=== PATIENT | female | born 1955 | race Caucasian/White ===

== ENCOUNTER → 2023-06-12 03:09 | Outpatient (CLI) | payer SELFPAY ==
--- NOTE | 2023-06-12 10:15 | DI.RAD_ITS ---
Exam(s) XR LUMBAR SPINE COMPLETE EXAM: XR LUMBAR SPINE COMPLETE - 5 VIEWS CLINICAL HISTORY: HIP PAIN, LOW BACK PAIN, M25.559, M54.50. TECHNIQUE: 2D digital imaging was performed. COMPARISON: No exams were available for comparison FINDINGS: Five views. There is no evidence of fracture, listhesis, nor pars defects. There is advanced disc space narrowin g at L2-3 level. Also at L5-S1 level. Moderate narrowing evident at the levels. Relative preservat ion of disc height noted at L3-4 level. No significant osseous lesions. No scoliosis evident. Some degenerative change noted in the facet joints at L4-5 level. Sacroiliac joints appear unremarkable IMPRESSION: Multilevel degenerative disc disease as described above. No fractures. No scoliosis. No listhesis. DATA REPOSITORY: RADIATION DOSE DELIVERED:
--- NOTE | 2023-06-12 10:15 | DI.RAD_ITS ---
Exam(s) XR HIP PELVIS ADULT BL EXAM: XR HIP PELVIS ADULT BL CLINICAL HISTORY: HIP PAIN, LOW BACK PAIN, M25.559, M54.50. TECHNIQUE: 2D digital imaging was performed. COMPARISON: No exams were available for comparison FINDINGS: 3 views There is no evidence of pelvic nor hip fracture. There are mild degenerative changes in the hips. T here is no significant hip joint space narrowing. Tiny marginal osteophyte is noted on the medial as pect of the right femoral head. None on the left side. No significant osseous lesions. Sacroiliac joints appear unremarkable. IMPRESSION: Mild degenerative changes in the hips. DATA REPOSITORY: RADIATION DOSE DELIVERED:
== END ==
PROVIDERS: PCP Nurse Practitioner Family; Visit Provider Physician Assistant Medical
DX: M51.27 Other intervertebral disc displacement, lumbosacral region (principal)
CPT/HCPCS: 73521; 72110

== ENCOUNTER 2024-02-19 09:47 | Outpatient (REF) | payer SELFPAY ==
[2024-02-19 16:22] LABS: Ferritin 101 ng/mL (8-252); Magnesium 1.8 mg/dL (1.8-2.4); Vitamin D 25 Total 16.6 ng/mL (30-100)
[2024-02-19 16:39] LABS: Hemoglobin A1C 5.6 % (<5.7)
== END 2024-02-19 09:48 | disposition home or self-care (01) ==
LOC: NCHCN 09:47
PROVIDERS: PCP Physician Assistant Medical; Visit Provider Physician Assistant Medical
DX: F41.9 Anxiety disorder, unspecified (principal); R73.03 Prediabetes
CPT/HCPCS: 82306; 82728; 83036; 83735

== ENCOUNTER 2024-05-20 11:19 | Emergency (ER) | payer SELFPAY ==
[2024-05-20] VITALS (28 sets, daily range): BP systolic 138–225; BP diastolic 74–148; PULSE 85–160; RESP 10–32; TEMP 36.5–36.6; O2SAT 92–99
--- NOTE | 2024-05-20 11:30 | DI.CT_ITS ---
Exam(s) CT ABDOMEN PELVIS W EXAM: CT ABDOMEN PELVIS W CLINICAL HISTORY: LLQ ABD pain. TECHNIQUE: Imaging Protocol: Axial computed tomography images with coronal and sagittal reformatted images were created and reviewed CONTRAST MATERIAL: Intravenous: Omnipaque 350 Contrast volume:75 ml Oral: no COMPARISON: No exams were available for comparison FINDINGS: ABDOMEN and PELVIS: Lung Bases: No acute findings. Liver: Normal density. No suspicious mass. Gallbladder and biliary tract: No radiodense calculus. No biliary dilation. Pancreas: Normal density. No abnormal calcifications or inflammatory process. No evidence of mass. Spleen: Normal. Kidneys: Normal size, contour and axis. No radiodense stones. No obstructive uropathy. No suspicious masses seen. Adrenal glands: No masses seen. Vasculature: Abdominal aorta non-dilated. Moderate atherosclerotic changes. Soft tissues: Unremarkable. Bladder: No gross wall thickening. No calculi.No focal mass. Bowel: No obstruction. No bowel wall thickening. No evidence of appendicitis. Normal quantity of s tool. Mild diverticulosis of the sigmoid. No evidence of diverticulitis. Peritoneal cavity: No ascites. No focal collection. No mesenteric inflammatory response. No free air . Bones: Unremarkable for age. Reproductive organs: Unremarkable hysterectomy. Lymph nodes: No pathologically enlarged lymph nodes. IMPRESSION:: No acute abnormality in the abdomen or pelvis. RADIATION DOSE DELIVERED: 250.54mGy.cm Total DLP DATA REPOSITORY: All CT scans at this facility are submitted to the National Radiology Data Registry (NRDR) Dose Index Registry (DIR) with the [employer] (ACR). RADIATION OPTIMIZATION: All CT scans at this facility use at least one of these dose optimization te chniques: automated exposure control; mA and/or kV adjustment per patient size (includes targeted exa ms where dose is matched to clinical indication); or iterative reconstruction.
[2024-05-20 12:01] LABS: Abs Immature Grans 0.03 10^3/uL (0.0-0.06); Absolute Basophil Count 0.08 10^3/uL (0.0-0.2); Absolute Eosinophil Count 0.11 10^3/uL (0.0-0.7); Absolute Lymphocyte Count 2.19 10^3/uL (1.2-3.4); Absolute Monocyte Count 0.65 10^3/uL (0.1-0.8); Basophils % 0.7 %; HCT 42.8 % (36.0-46.0); HGB 14.4 g/dL (11.2-15.7); Immature Grans % 0.3 %; Lymphocytes % 19.1 %; MCH 31.4 pg (27.0-33.0); MCHC 33.6 % (32.0-36.0); MCV 93 fL (80-95); MPV 9.9 fL (8.0-11.0); Monocytes % 5.7 %; Neutrophils % 73.2 %; Platelet Count 303 10^3/uL (130-400); RBC 4.58 10^6/uL (3.93-5.22); RDW 12.6 % (11.7-14.6); RDW-SD 43.6 fL; WBC 11.48 10^3/uL (4.4-10.8)
[2024-05-20 12:02] LABS: ESR 20 mm/hr (0-30)
[2024-05-20 12:06] LABS: Bilirubin Negative (Negative); Blood Trace-intact (Negative); Clarity Clear (Clear); Glucose Negative (Negative); Ketones Negative (Negative); Leukocyte Esterase Negative (Negative); Nitrite Negative (Negative); Urobilinogen 0.2 mg/dL (Up to 0.2)
--- OUTSIDE RECORDS SUMMARY | 2024-05-20 12:13 | XMS_ITS | Encounter Summary ---
Author Organization [facility] Address [address] [place] [address] Care Team Providers Care Laundry Agent Name Role Phone Unavailable Primary Care Provider Unavailabl e Encounter Details Date Type Department Care Team (Latest Contact Info) Description 06/10/2007 11:32 EST - 06/10/2007 11:59 EST Hospital Encounter [facility] Perioperative Services- [address] [address] Edy Montgomery MD [address] [place] [address] DR MIRANDA [address] [place] [phone] Discharge Disposition: Home or Self Care Social History Tobacco Use Types Packs/Day Years Used Date Smoking Tobacco: Never Assessed Comments Unknown Sex and Gender Information Value Date Recorded Sex Assigned at Not on file Legal Sex Female 18:41 EST Gender Identity Not on file Sexual Orientation Not on file documented as of this encounter Discharge Disposition Disposition Code Departure Means Destination Home or Self Care documented in this encounter OR Notes * OR Surgeon - Edy Montgomery MD - 06/10/2007 0000 EST PROCEDURE REPORT PT TYPE: OPPROC SERVICE DATE: 06/10/2007 SURGEON: Melva De Leon MDEmmanuel Soultanakis, MD DOBIE WORKER: ?? PREOPERATIVE DIAGNOSIS Pelvic mass. POSTOPERATIVE DIAGNOSIS Pelvic mass with extensive adhesions. PROCEDURE Laparoscopic bilateral salpingo-oophorectomies, extensive lysis of adhesions. ANESTHESIA General endotracheal. INDICATIONS The patient is a 51woman who presented with abdominal distention and right-sided pelvic pain. On initial evaluation, she was found to have a small right-sided pelvic mass. Some of her symptoms resolved over some time, specifically her distention, but she persisted having right-sided pain, and the right-sided mass continued to persist on ultrasound. Decision was made to proceed with laparoscopic removal of the mass to an ovary and possible removal of the contralateral adnexa and staging if indicated. Patient signed a written consent after risks and benefits of procedure were reviewed. The patient had multiple laparotomies previously for bilateral ectopic pregnancies and a cystectomy in the past. FINDINGS Laparoscopy revealed extensive adhesion of the omentum to the anterior abdominal wall where her midline incision was previously. There were also some adhesions of the rectosigmoid to the left adnexa as well as in the pelvis. NARRATIVE The patient was taken to the operating room with an IV in place and general endotracheal anestheticwas administered. The patient was placed in the dorsal lithotomy position and was prepped and draped in the usual sterile fashion for a vaginal/abdominal procedure. A House catheter was placed in thebladder and a Hulka tenaculum was inserted into the uterus and attached to the anterior cervical lip. An infraumbilical vertical incision was then made with a 10 blade. This was carried down to the fascia using blunt dissection. The fascia was grasped with two Marcell clamps and incised. The peritoneal cavity was then entered sharply. Two 0 Vicryl stay sutures were placed through the fascia and the Quang cannula was inserted and attached to the two stay sutures. Initial inspection of the abdomen and pelvis revealed the above findings. There was a drape of omentum across the midportion of the abdomen where the midline incision was. Two lower trocars were placed in the lower abdomen, one in theright lower quadrant and one in the left lower quadrant. Visualization of the upper trocar with a 5-mm scope revealed that it was near the omental adhesions but was not interfering with any of the omentum, and the bowel was far away. The omentum was also adherent to the superior portion of the uterus, making visualization very difficult. Initially, we tried to restore some normal anatomy in order to be able to visualize the adnexa and allow for instruments from either side of the abdomen to be utilized. Using the LigaSure, the omentum attached to the uterus was cauterized and incised in order to mobilize that area. Once that was mobilized, we had some better visualization to attempt excision of the right-sided mass. The retroperitoneum was entered lateral to the IP using the monopolar cautery scissors. That area was dissected along the IP to skeletonize the IP. The ureter was ureter was identified, and the IP was then ca uterized multiple times with a LigaSure instruments and incised. The dissection was carried out towards the uteroovarian. Once at that area, we were able to cauterize the uteroovarian multiple times and incise and then separate the tube and ovary from the body. A 10-mm Endopouch was placed in the abdomen. The ovary was placed in the pouch and removed from the abdomen. It required decompression with removal of the cyst fluid prior to removal. The Quang cannula was then reinserted into the abdomen and the left tube and ovary were reinspected. The rectosigmoid was adherent over the left ovary and required mobilization using monopolar cautery scissors. Once the rectosigmoid was adequately mobilized in order to expose the IP, the retroperitoneum again was entered lateral to the IP and the IP was skeletonized. Because of the appearance of the left ovary with several excrescences, the decision was made to proceedwith a left salpingo- oophorectomy as well. The IP was then cauterized multiple times and incised and this dissection was carried out to the uteroovarian. The uteroovarian and remai annika fallopian tube were also cauterized and incised, and that specimen wasseparated, placed in a 10-mm Endopouch and removed from the abdomen. 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 The abdomen and pelvis were irrigated with a copious amount of normal saline, and all the pedicles were hemostatic. The area of dissection from the lysis of adhesions was also hemostatic. The lower trocars were removed and the Quang cannula was removed last after all the gas was allowed to escape. The fascia was closed with a 0 Vicryl suture in the infraumbilical incision, and all the incisions were repaired in a subcuticular fashion using 4-0 Monocryl. A sterile bandage was placed over the incision. The patient was taken out of dorsal lithotomy position after the Hulka tenaculum was removed, extubated successfully and taken to the recovery room in stable and awake condition. There were no complications to the procedure. The instrument, needle and lap counts were correct and I was present throughout the procedure. More than 50% of the case was restoring normal anatomy to proceed with the procedure. ESTIMATED BLOOD LOSS Minimal. IV FLUIDS Approximately 1700 mL crystalloid. SPECIMENS Bilateral tubes and ovaries and washings to pathology. 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 COMPLICATIONS None. Signed by Edy Montgomery MD 06/27/2007 14:50 Edy Montgomery MD Courier Delivery Driver, Division of DIRECTOR FIXED INCOME/Oncology - Edy Montgomery MD A - CHARTER BOAT CAPTAIN Job ID: [id number] Document ID: [id number] cc: BRIANA Méndez MD Edy Montgomery MD Courier Delivery Driver, Division of DIRECTOR FIXED INCOME/Oncology - Edy Montgomery MD A Neetu jimenez Job ID: [id number] Document ID: [id number] cc: BRIANA Méndez MD documented in this encounter Plan of Treatment Not on file documented as of this encounter Visit Diagnoses Not on filedocumented in this encounter
--- OUTSIDE RECORDS SUMMARY | 2024-05-20 12:13 | XMS_ITS | Encounter Summary ---
Author Organization [facility] Address [address] [place] [address] Care Team Providers Care Cow Buyer Name Role Phone Unavailable Primary Care Provider Unavailabl e Encounter Details Date Type Department Care Team (Late st Contact Info) Description 06/04/2007 Before PRISM Converted Visit (Maple) [facility] - Maple conversion [address] [place] [address] Edy Montgomery MD [address] [place] [address] DR MIRANDA [address] [place] [phone] Social History Tobacco Use Types Packs/Day Years Used Date Smoking Tobacco: Never Assessed Comments Unknown Sex and Gender Information Value Date Recorded Sex Assigned at Not on file Legal Sex Female 18:41 EST Gender Identity Not on file Sexual Orientation Not on file documented as of this encounter Progress Notes * Edy Montgomery MD - 04/06/20092035 EST [facility] Division of Gynecologic Oncology [facility], Level [address] [place] [address] June 04, 2007 Kath Gardner NP [facility] [address] [place] [address] Dear Ms. Gardner: I had the pleasure of seeing Erika Harkins back at the PROGRAM ARRANGER/Oncology office for a followup visit. I had seen her in April of 2007, because of increase bloating and abdominal pain. She had had an evaluation with a small pelvic mass, and we at that point elected to proceed with close followup. I asked her to have a GI evaluation to rule out any gastrointestinal etiology for her abdominal pain and bloating that may also contributeto a pelvic mass such as a metastatic colonic lesion. She has had that evaluation and her colonoscopy was entirely negative. She did have a repeat ultrasound today at our institution. The repeat ultrasound shows persistence of this mass. Again, there are nodular components and thick wall components in that area that increase our level of suspicion to this mass. In regards to her symptoms she has had some improvement of her abdominal bloating, but does continue tocomplain of right lower quadrant pain. I discussed with her and her the results of the ultrasound, and her ongoing symptoms. At this time, I have recommended that she has removal of that adnexal mass. We discussed the possible operative roots, including laparoscopic procedure, but also including laparotomy. She has had extensivesurgeries previously that may make laparoscopic approach technically very difficult. We also discussed intraoperative frozen section evaluation and surgical staging if this mass ends up being malignant. She understands that she will need an incision, removal of the uterus, cervix, tubes and ovaries, omentum, possible lymph node dissection and cytoreductive surgery if necessary. The risks and benefits of both procedures were discussed with her and a written consent was signed.We will obtain preoperative laboratory work-up and plan for surgery at our next available date. A physical examination was done today, which revealed clear lungs to auscultation. Heart rate was regular rate and rhythm. Her abdomen was soft with decreased distention and some right lower quadranttenderness. Extremities were nontender without edema. The pelvic exam was deferred today, since it was done on a previous examination. We will proceed with surgery, hopefully on June 10, 2007, and I will certainly keep you up-to-date with the findings of the surgery and any further recommendations. Thank you again for allowing me to contribute to Erika Harkins' care. If you have other questions regarding her care, please feel free to call or page me directly. It is my pleasure and privilege to take care of your patient. Sincerely, Signed by Edy Montgomery MD 06/06/2007 15:32 Edy Montgomery MD Boots And Shoes Supervisor, Division of PROGRAM ARRANGER/Oncology - Edy Montgomery MD - dis Job ID: [id number] Doc ID: [id number] cc: BRIANA Méndez MD Emmanuel Soultanakis, MD - dis Job ID: [id number] Doc ID: [id number] cc: BRIANA Méndez MD documented in this encounter Plan of Treatment Not on file documented as of this encounter Visit Diagnoses Not on filedocumented in this encounter
--- OUTSIDE RECORDS SUMMARY | 2024-05-20 12:13 | XMS_ITS | Encounter Summary ---
Author Organization [facility] Address [address] [place] [address] Care Team Providers Care Fishing Gear Mechanic Name Role Phone Yovanny Browning MD Primary Care Provider [phone] Encounter Details Date Type Department Care Team (Latest Contact Info) Description 01/02/2014 12:28 EDT - 01/02/2014 23:59 EDT Hospital Encounter [address] [id number] Unknown, Provider, Discharge Disposition: Home or Self Care Social History Tobacco Use Types Packs/Day Years Used Date Smoking Tobacco: Never Assessed Comments Unknown Sex and Gender Information Value Date Recorded Sex Assigned at Not on file Legal Sex Female 18:41 EST Gender Identity Not on file Sexual Orientation Not on file documented as of this encounter Medications at Time of Discharge escitalopram (LEXAPRO) 10 mg tablet Take 10 mg by mouth daily. IBUPROFEN ORAL Take by mouth as needed. MULTIVITAMINS (MULTIVITAMIN ORAL) Take 1 Tab by mouth daily. POTASSIUM CITRATE ORAL Take 258.6 mg by mouth daily. VITAMIN E ACETATE (VITAMIN E ORAL) Take by mouth. documented as of this encounter Discharge Disposition Disposition Code Departure Means Destination Home or Self [facility] documented in this encounter Plan of Treatment Not on file documented as of this encounter Visit Diagnoses Not on filedocumented in this encounter Care Teams Fishing Gear Mechanic Relationship Specialty Start Date End Date Yovanny Browning MD [address] [place] [phone] PCP - General 03/01/10 documented as of this encounter
--- OUTSIDE RECORDS SUMMARY | 2024-05-20 12:13 | XMS_ITS | Encounter Summary ---
Author Organization [facility] Address [address] [place] [address] Care Team Providers Care Jukebox Operator Name Role Phone Unavailable Primary Care Provider Unavailabl e Encounter Details Date Type Department Care Team (Late st Contact Info) Description 05/15/2007 Before PRISM Converted Visit (Maple) [facility] - Maple conversion [address] [place] [address] Librado Andrade MD [address] [facility] [address] [place] [address] Social History Tobacco Use Types Packs/Day Years Used Date Smoking Tobacco: Never Assessed Comments Unknown Sex and Gender Information Value Date Recorded Sex Assigned at Not on file Legal Sex Female 18:41 EST Gender Identity Not on file Sexual Orientation Not on file documented as of this encounter Procedure Notes * Librado Andrade MD - 04/06/2009 2030 EST [facility] Colonoscopy Procedure Report Attending Physician: LIBRADO ANDRADE MD Physician: LEOBARDO WRAY MD Exam Date:05/15/2007 Introduction:A 51 year old female patient presents for an outpatient Colonoscopy Indications: ?? Pain centered in the right lower quadrant of the abdomen and left a lower quadrant of the abdomen (789.03) (789.04). ?? Bloating. Consent: The benefits, risks, and alternatives to the procedure were discussed and informed consentwas obtained from the patient. Preparation: ?? EKG, pulse, pulse oximetry and blood pressure were monitored throughout the procedure. ?? Classification: Class 1 - Patient has no organic, physiologic, biochemical, or psychiatric disturbance. Medications: ?? Versed 5 mg IV ?? Demerol 100 mg IV Rectal Exam: ?? Normal rectal exam. Procedure: endoscope was passed through the anus under direct visualization and advanced without difficulty to the terminal ileum, confirmed by landmarks. The scope was withdrawn and the mucosa was carefully examined. The quality of the preparation was good. The views were good. The patient's toleration of the procedure was good. Retroflexion was performed. Findings: Internal hemorrhoids were found in the rectum. Otherwise, the colon and termianl ileum appeared to be normal. Unplanned Events: There were no unplanned events. Summary: ?? Internal hemorrhoids in the rectum (455.0), Recommendations: ?? Colonoscopy recommended in 10 years. Performed By: The procedure was performed by Dr. Librado Andrade. electronically signed by Dr. LIBRADO ANDRADE MD, M.D. on 05/15/2007 at 08:05 [facility] Document ID: [id number] documented in this encounter Plan of Treatment Not on file documented as of this encounter Visit Diagnoses Not on filedocumented in this encounter
--- OUTSIDE RECORDS SUMMARY | 2024-05-20 12:13 | XMS_ITS | Encounter Summary ---
Author Organization [facility] Address [address] [place] [address] Care Team Providers Care Lead Security Officer Name Role Phone Unavailable Primary Care Provider Unavailabl e Encounter Details Date Type Department Care Team (Late st Contact Info) Description 02/24/[address] [facility] Laboratory Services - [facility] ([facility]) [address] [place] [address] Lila Arboleda MD [address] [place] [address] Social History Tobacco Use Types Packs/Day Years Used Date Smoking Tobacco: Never Assessed Comments Unknown Sex and Gender Information Value Date Recorded Sex Assigned at Not on file Legal Sex Female 18:41 EST Gender Identity Not on file Sexual Orientation Not on file documented as of this encounter Plan of Treatment Not on file documented as of this encounter Procedures Procedure Name Priority Date/Time Associated Diagnosis Comments SURGICAL PATHOLOGY Routine 02/24/2010 0:00 EDT documented in this encounter Results * SURGICAL PATHOLOGY (02/24/2010 0:00 EDT) Pathology Report: SURGICAL PATHOLOGY REPORT ? Reports generated via electronic interface contain original data; ? however they are lacking the format of the original report. ? Caution should be taken when reading/interpreti ng unformatted reports. ? Name: ? DANIEL, ERIKA M ? Accession #: ? [id number] ? : ? 1955 (Age: 54) ??F ? Collect Date: ? 02/24/2010 ? Location: ? [facility] ? Receive Date: ? 02/25/2010 ? Provider: LILA ARBOLEDA MD ? Copy to: OTIS BARTON CUFF SETTER LOCKSTITCH ? Final Pathologic Diagnosis: ? Skin of thigh, right anterior, excisional biopsy: ? 1. ?Dermatofibroma. ? - Dermatofibroma extends to peripheral margin of excision specimen. ? Microscopic Description: ? There is irregular epidermal hyperplasia with basal hyperpigmentation. ? Within the dermis, there is a spindle cell proliferation accompanied by ? histiocytes. ??The spindle cells have plump nuclei that vary to a mild degree in size and shape. ??The proliferation is associated with thick bundles of collagen (collagen trapping) and areas of sclerosis. ??(Dr. Harkins)/mms ? Document reviewed and electronically signed by: ? FACUNDO HARKINS MD ? Report ??Date: 02/28/2010 16:06 ? By the signature above, the attending physician certifies that he/she has ? personally conducted a gross and/or microscopic examination of the described ? specimens and rendered or confirmed the above diagnosis. ? Specimen(s) Received: ? R ant. thigh ? Clinical History: ? 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 Elliptical excision made around lesion ? Gross Description: ? Received in formalin labelled Wells, Erika and R upper leg is an ? unoriented elliptical excision of skin which measures 0.9 x 0.6 cm and is ? excised to a depth of 0.5 cm. ??There is a centrally located white nodule that ?? measures 0.3 x 0.3 x 0.1 cm. ??Within this white nodule there is a centrally ? located dark brown macule which measures 0.2 x 0.2 x 0.1 cm. ??The margins are ?? inked black. ??The specimen is serially sectioned and entirely submitted as (A1) tips, reverse en face, (A2) central sections. (Dr. Reeves)/mpl ? End of Report ? SURENDRA MAYERS 02/24/2010 02/25/2010 19: 38 EDT us Lila Arboleda MD PATHOLOGY ORDERABLES Final Resu lt [facility] [address] [place] [address] documented in this encounter Visit Diagnoses Not on filedocumented in this encounter
--- OUTSIDE RECORDS SUMMARY | 2024-05-20 12:13 | XMS_ITS | Encounter Summary ---
Author Organization [facility] Address [address] [place] [address] Care Team Providers Care Abrasive Water Jet Cutter Operator Name Role Phone Carolin Denson MD Primary Care Provider [phone] Encounter Details Date Type Department Care Team (Late st Contact Info) Description 06/10/2007 Results Only [facility] - [address] [address] Leobardo Montgomery MD [address] [place] [address] DR MIRANDA [address] [place] [phone] Social History Tobacco Use Types Packs/Day [...] Procedure Name Priority Date/Time Associated Diagnosis Comments CYTOPATHOLOGY Routine 06/10/2007 0:00 EST SURGICAL PATHOLOGY Routine 06/10/2007 0:00 EST documented in this encounter Results * CYTOPATHOLOGY (06/10/2007 0:00 EST) Pathology Report: CYTOPATHOLOGY REPORT Reports generated via electronic interface contain original data; however they are lacking the format of the original report. Caution should be taken when reading/interpreti ng unformatted reports. Name: ? ERIKA SANCHEZ ? Accession #: ? [id number] : ? 1955 (Age: 51) ??F ?Collect Date: ? 06/10/2007 Location: ? [facility] ? Receive Date: ? 06/11/2007 Provider: ? LEOBARDO MONTGOMERY MD Copy to: ?ERNESTINE DENSON MD ? CYTOLOGIC DIAGNOSIS: ? Peritoneal washing, cytologic evaluation: 1. ?No malignant cells identified. Document reviewed and electronically signed by: ? SERJIO REARDON MD Report Date: ??06/12/2007 11:11 By the signature above, the attending physician certifies that he/she has personally conducted a gross and/or microscopic examination of the described specimens and rendered or confirmed the above diagnosis. Specimen Type: ? Peritoneal Washing Clinical History: ? Pelvic mass ? Gross Description: ? 500cc' s of cloudy pink fluid were received and processed by selective cellular enhancement technique. ? End of Report [facility] 06/10/2007 06/11/2007 8:5 2 EST us Leobardo Montgomery MD PATHOLOGY ORDERABLES F inal Result [facility] [address] [place] [address] * SURGICAL PATHOLOGY (06/10/2007 0:00 EST) Pathology Report: SURGICAL PATHOLOGY REPORT Reports generated via electronic interface contain original data; however they are lacking the format of the original report. Caution should be taken when reading/interpretin g unformatted reports. Name: ? ERIKA SANCHEZ ? Accession #: ? [id number] ? : ? 1955 (Age: 51) ??F ? Collect Date: ? 06/10/2007 ? Location: ? [facility] ? Receive Date: ? 06/10/2007 ? Provider: LEOBARDO MONTGOMERY MD Copy to: CAROLIN NAVAS [employer] CAMERAMAN ? Final Pathologic Diagnosis: A. ?Fallopian tube and ovary, right, right salpingo-oophorecto my: 1. ?Serous cystadenofibroma with focal calcification. B. ?Ovary, left, excision: 1. ?Serous cystadenofibroma with focal calcification Document reviewed and electronically signed by: CAROLINE PARKS MD Report ??Date: 06/13/2007 08:47 By the signature above, the attending physician certifies that he/she has personally conducted a gross and/or microscopic examination of the described specimens and rendered or confirmed the above diagnosis. Specimen(s) Received: ? A. ??Right tube and ovary B. ??Left ovary Clinical History: ? Pelvic mass Intraoperative Interpretation: 1. ?Right fallopian tube and ovary: ??Adenofibromas. 2. ? Left ovary: ??Adenofibroma. ? Results called to Dr. Montgomery ??Dr. Alex, ??in OR #[id number] at 4:50 p.m. on 06/10/07 I have personally reviewed these slides with Dr. Alex and agree with her interpretation ??Dr. Oliver; 06/20/07 at 4:59 p.m Gross Description: ? Received fresh labelled Torin and right tube and ovary is a 7 gram, intact 3.2 x 2.3 x 1.4 cm cystic ovary. ??The white-lorenzo lobulated serosa is remarkable for a 1.2 x 0.7 x 0.4 cm lorenzo-yellow nodule. ??Centrally, within the parenchyma there is a 2.3 x 1.9 x 1.7 cm smooth-walled cyst with yellow-lorenzo mottling and a 0.7 x 0.5 x 0.5 cm white-lorenzo, firm, cauliflower-like nodule. ??A employee relations representative sections of the lorenzo-yellow external nodule along with the cauliflower-like lesion is submitted for frozen section (FS1) with the interpretation rendered as above. ??The remainder of the ovarian parenchyma is lorenzo-white. ??A discrete fragment of fallopian tube is not identified, however, per the surgeon, the patient has had a previous partial salpingectomy. Criminalist sections to include 75% of the ovary are submitted as follows BLOCK ESTEVEZ A1 ?Frozen section control A2 ?Ovary to include central cyst wall and remainder of cauliflower-like lesion A3, A4 ?Criminalist sections of ovary to include serosa Received fresh labelled Torin and left ovary is a 3 gram, 2.3 x 1.7 x 0.7 cm ovary with a lorenzo-white lobulated serosa. ??Several lorenzo-white firm, serosal nodules ranging from 0.3 to 0.9 cm in greatest dimension are identified. ??Two employee relations representative sections to include the nodules are submitted for frozen section (FS2) with the interpretation rendered as above. ??The ovary is entirely submitted as: BLOCK ESTEVEZ B1 ?B1 (FS2) control B2, B3 ?Ovary with serosal nodules (Scott Baird)/mpl End of Report [facility] 06/10/2007 06/10/2007 16: 07 EST us Leobardo Montgomery MD PATHOLOGY ORDERABLES F inal Result [facility] [address] [place] [address] documented in this encounter Visit Diagnoses Not on filedocumented in this encounter Care Teams Abrasive Water Jet Cutter Operator Relationship Specialty Start Date End Date Carolin Denson MD [address] [place] [phone] PCP - General 03/01/10 documented as of this encounter
--- OUTSIDE RECORDS SUMMARY | 2024-05-20 12:13 | XMS_ITS | Encounter Summary ---
Author Organization [facility] Address [address] [place] [address] Care Team Providers Care Director Of Institutional Research Name Role Phone Unavailable Primary Care Provider Unavailabl e Encounter Details Date Type Department Care Team (Late st Contact Info) Description 06/25/2009 Abstract [facility] Services - [facility] [address] [place], [place] [id number] Unknown, Provider, Social History Tobacco Use Types Packs/Day Years [...] Diagnoses Not on filedocumented in this encounter Historical Medications * This list may reflect changes made after this encounter. IBUPROFEN ORAL Take by mouth as needed. VITAMIN E ACETATE (VITAMIN E ORAL) Take by mouth. POTASSIUM CITRATE ORAL Take 258.6 mg by mouth daily. escitalopram (LEXAPRO) 10 mg tablet Take 10 mg by mouth daily. MULTIVITAMINS (MULTIVITAMIN ORAL) Take 1 Tab by mouth daily. added in this encounter
--- OUTSIDE RECORDS SUMMARY | 2024-05-20 12:13 | XMS_ITS | Encounter Summary ---
Author Organization [facility] Address [address] [place] [address] Care Team Providers Care Milk Condenser Name Role Phone Unavailable Primary Care Provider Unavailabl e Encounter Details Date Type Department Care Team (Late st Contact Info) Description 06/04/2007 Results Only [facility] - [facility] [address] [place], [place] [id number] Edy Montgomery MD [address] [place] [address] DR MIRANDA [address] [place] [phone] Social History Tobacco Use Types Packs/Day [...] Procedure Name Priority Date/Time Associated Diagnosis Comments COMPLETE BLOOD COUNT AND DIFF, CHEMO Routine 06/04/2007 12:24 EST PTT Routine 06/04/2007 12:24 EST PROTIME Routine 06/04/2007 12:24 EST ZZCA 125 Routine 06/04/2007 12:24 EST COMPREHENSIVE METABOLIC PANEL (CMP) Routine 06/04/2007 12:24 EST documented in this encounter Results * PTT (06/04/2007 12:24 EST) PTT 27 20 - 35 secs [facility] Comment:Therapeutic Heparin range: 60-100 seconds 06/04/2007 12:2 4 EST 06/04/2007 12:59 EST Edy Montgomery MD HEMATOLOGY & PF4 ORDER SCARLETT Final Result Performing Organization Address [facility] de Phone Number [facility] [address] [place] [address] * PROTIME (06/04/2007 12:24 EST) Pro Time 13.1 12.0 - 15.0 secs [facility] Comment:Coumadin N I.N.R. 1.0 0.9 - 1.1 Ratio [facility] Comment: Moderate Intensity Coumadin INR = 2.0-3.0 Adjustments in anticoagulant therapy dose should be based upon the INR and NOT the Pro Time. Coumadin N 06/04/2007 12:2 4 EST 06/04/2007 12:59 EST Edy Montgomery MD HEMATOLOGY & PF4 ORDER SCARLETT Final Result Performing Organization Address [facility] Phone Number [facility] [address] [place] [address] * COMPREHENSIVE METABOLIC PANEL (06/04/2007 12:24 EST) Potassium 4.6 3.5 - 5.0 mEq/L [facility] Sodium 141 136 - 145 mEq/L [facility] Chloride 104 96 - 110 mEq/L [facility] CO2 29 24 - 32 mEq/L [facility] Total Alkaline Phosphatase 105 38 - 126 U/L [facility] Bilirubin, Total <0.5 0.2 - 1.3 mg/dl [facility] AST 21 15 - 46 U/L [facility] ALT 19 9 - 52 U/L [facility] Albumin 4.5 3.4 - 4.9 g/dl [facility] Total Protein 7.6 6.5 - 8.3 g/dl [facility] Creatinine 0.70 0.7 - 1.5 mg/dl [facility] GFR, Calculated >60 ml/min/1.7 3m2 [facility] BUN 15 10 - 26 mg/dl [facility] Calcium 9.5 8.5 - 10.5 mg/dl [facility] Calculated Calcium 9.4 8.5 - 10.5 mg/dl [facility] Glucose, Serum 88 70 - 100 mg/dl [facility] Fasting? No [facility] 06/04/2007 12:2 4 EST 06/04/2007 12:59 EST Edy Montgomery MD CHEMISTRY & BLOOD GAS ORDERABLES Final Result Performing Organization Address City/State/[facility] [[email or web address]] Co de Phone Number [facility] [address] [place] [address] * (ABNORMAL) CBC WITH AUTO DIFF - ONCOLOGY USE ONLY (06/04/2007 12:24 EST) WBC 7.53 4.0 - 12.4 K/cmm [facility] RBC 4.35 3.86 - 5.04 M/cmm [facility] Hemoglobin 13.9 11.6 - 15.2 gm/dl [facility] HCT 40.6 34.9 - 44.4 % [facility] MCV 93 81 - 98 fl [facility] MCH 32.1 26.7 - 33.3 pg [facility] MCHC 34.3 32.1 - 35.9 gm/dl [facility] PLT 332(H) 141 - 320 K/cmm [facility] RDW-CV 13.3 11.7 - 14.6 % [facility] % Neutrophils 61.7 45.5 - 79.7 % [facility] % Lymphocytes 30.5 15.0 - 46.8 % [facility] % Monocytes 5.3 1.8 - 12.0 % [facility] % Eosinophils 1.7 0.6 - 6.9 % [facility] % Basophils 0.8 0.2 - 1.4 % [facility] ABS Neutrophils 4.66 2.20 - 8.85 K/cmm [facility] ABS Lymphs 2.30 1.09 - 3.30 K/cmm [facility] ABS Monocytes 0.40 0.1 - 0.8 K/cmm [facility] ABS Eosinophils 0.12 0.03 - 0.61 K/cmm [facility] ABS Basophils 0.06 0.01 - 0.11 K/cmm [facility] Type of Diff: Automated [facility] 06/04/2007 12:2 4 EST 06/04/2007 12:59 EST Edy Montgomery MD PACKAGES & DNA PROBE O RDERABLES Final Result Performing Organization Address [facility] [[email or web address]] Co de Phone Number [facility] [address] [place] [address] * CA 125 (06/04/2007 12:24 EST) CA 125 13 0 - 35 U/ml [facility] Comment: Serum CA125 concentrations should not be interpreted as absolute evidence for the presence or absence of malignant disease. Assayed utilizing [employer] technology. Values obtained by using different assay methods cannot be used interchangeably. 06/04/2007 12:2 4 EST 06/04/2007 12:59 EST Edy Montgomery MD CHEMISTRY & BLOOD GAS ORDERABLES Final Result Performing Organization Address [facility] [[email or web address]] Co de Phone Number [facility] [address] [place] [address] documented in this encounter Visit Diagnoses Not on filedocumented in this encounter
--- OUTSIDE RECORDS SUMMARY | 2024-05-20 12:13 | XMS_ITS | Encounter Summary ---
Author Organization [facility] Address [address] [place] [address] Care Team Providers Care Software Systems Analyst Name Role Phone Unavailable Primary Care Provider Unavailabl e Encounter Details Date Type Department Care Team (Latest Contact Info) Description 06/04/2007 10:10 EST - 06/04/2007 11:59 EST Hospital Encounter [facility] [address] [place] [address] Edy Montgomery MD [address] [place] [address] DR MIRANDA [address] [place] [phone] Discharge Disposition: Auto Discharge Social History Tobacco Use Types Packs/Day Years Used Date Smoking Tobacco: Never Assessed Comments Unknown Sex and Gender Information Value Date Recorded Sex Assigned at Not on file Legal Sex Female 18:41 EST Gender Identity Not on file Sexual Orientation Not on file documented as of this encounter Discharge Disposition Disposition Code Departure Means Destination Auto Discharge documented in this encounter Plan of Treatment Not on file documented as of this encounter Procedures Procedure Name Priority Date/Time Associated Diagnosis Comments SUPERVISOR AIR CONDITIONING INSTALLER US PELVIS TRANSVAGINAL 06/04/2007 11:39 EST documented in this encounter Results * SUPERVISOR AIR CONDITIONING INSTALLER US PELVIS TRANSVAGINAL (06/04/2007 11:39 EST) Anatomical Region Laterality Modality Other 06/04/2007 11:3 9 EST Narrative 11/16/2008 3:45 EDT abd bloating/ pain ULTRASOUND PELVIS TRANSVAGINAL 06/04/07 INDICATION: Patient is 51 years old and has a history of a right ovarian cyst with mural nodularity. ??Ultrasound was performed at another institution. FINDINGS: Transvaginal ultrasound is performed. The uterus is anteflexed and measures 6.4cm sagittally, 3.0cm AP and 3.9cm transversely. The endometrium is thin and homogeneous and measures 2.0mm. ??There are no structural abnormalities of the cervix or myometrium. There is no free fluid in the cul-de-sac. The left ovary is normal in size and location and is devoid of background follicular activity. This ovary measures 1.4 x 0.6 x 0.8cm. ??The right ovary in overall dimensions measures 3.0 x 1.9 x 2.8cm. ??Within this ovary is a unilocular cyst with a mural nodule. Dimensions of the cyst are 2.3 x 2.3 x 1.6cm. ??The mural nodule measures 0.7 x 0.7cm. ??Color Doppler does not reveal any blood flow within this nodule. IMPRESSION: Complex right ovarian cyst. ??Malignancy cannot be ruled out. No other structural abnormality is noted. D 06/05/07 T 06/05/07 /altagracia Procedure Note Yovanny Goodwin MD - 11/16/2008 abd bloating/ pain ULTRASOUND PELVIS TRANSVAGINAL 06/04/07 INDICATION: Patient is 51 years old and has a history of a right ovarian cyst with mural nodularity. Ultrasound was performed at another institution. FINDINGS: Transvaginal ultrasound is performed. The uterus is anteflexed and measures 6.4cm sagittally, 3.0cm AP and 3.9cm transversely. The endometrium is thin and homogeneous and measures 2.0mm. There are no structural abnormalities of the cervix or myometrium. There is no free fluid in the cul-de-sac. The left ovary is normal in size and location and is devoid of background follicular activity. This ovary measures 1.4 x 0.6 x 0.8cm. The right ovary in overall dimensions measures 3.0 x 1.9 x 2.8cm. Within this ovary is a unilocular cyst with a mural nodule. Dimensions of the cyst are 2.3 x 2.3 x 1.6cm. The mural nodule measures 0.7 x 0.7cm. Color Doppler does not reveal any blood flow within this nodule. IMPRESSION: Complex right ovarian cyst. Malignancy cannot be ruled out. No other structural abnormality is noted. D 06/05/07 T 06/05/07 /altagracia Edy Montgomery MD G SUPERVISOR AIR CONDITIONING INSTALLER ORDERABLES Final Result documented in this encounter Visit Diagnoses Not on filedocumented in this encounter
--- OUTSIDE RECORDS SUMMARY | 2024-05-20 12:13 | XMS_ITS | Clinical Summary ---
Author Organization [facility] Address [address] [place] [address] Care Team Providers Care Director Federal Name Role Phone Yovanny Browning MD Primary Care Provider [phone] Allergies Active Allergy Reactions Criticality Noted Date Comments Sulfamethoxazole-Trimethoprim 2009 DB Penicillins 06/25/2009 Medications MULTIVITAMINS (MULTIVITAMIN ORAL) Take 1 Tab by mouth daily. Active escitalopram (LEXAPRO) 10 mg tablet Take 10 mg by mouth daily. Active POTASSIUM CITRATE ORAL Take 258.6 mg by mouth daily. Active VITAMIN E ACETATE (VITAMIN E ORAL) Take by mouth. Active IBUPROFEN ORAL Take by mouth as needed. Active Social History Tobacco Use Types Packs/Day Years Used Date Smoking Tobacco: Never Assessed Comments Unknown Sex and Gender Information Value Date Recorded Sex Assigned at Not on file Legal Sex Female 18:41 EST Gender Identity Not on file Sexual Orientation Not on file Plan of Treatment Health Maintenance Due Date Last Done Comments Hepatitis C Screen 1955 Fall Risk Screening 2021 COVID-19 Vaccine (2023- season) 2024 RSV Immunization ( o r 60+ Years) (1 - 1-dose 75+ series) 12/04/2031 Advance Directives For more information, please contact: [phone] Documents on File Type Date Recorded Patient Proced Tech Expl anation Advance Directive 05/07/2009 3:15 Care Teams Director Federal Relationship Specialty Start Date End Date Yovanny Browning MD [address] [place] [phone] [facility] - General 03/01/10
--- OUTSIDE RECORDS SUMMARY | 2024-05-20 12:13 | XMS_ITS | Encounter Summary ---
Author Organization [facility] Address [address] [place] [address] Care Team Providers Care Thermodynamic Physicist Name Role Phone Unavailable Primary Care Provider Unavailabl e Encounter Details Date Type Department Care Team (Late st Contact Info) Description 04/02/2007 Results Only [facility] [address] [place] [address] Shamir Katz, BRIANA [address] [place] [address] Social History Tobacco Use Types Packs/Day Years [...] Priority Date/Time Associated Diagnosis Comments CYTOPATHOLOGY Routine 04/02/2007 0:00 EST documented in this encounter Results * CYTOPATHOLOGY (04/02/2007 0:00 EST) Pathology Report: CYTOPATHOLOGY REPORT Reports generated via electronic interface contain original data; however they are lacking the format of the original report. Caution should be taken when reading/interpreti ng unformatted reports. Name: ? ERIKA SANCHEZ ? Accession #: ? [id number] : ? 1955 (Age: 51) ??F ?Collect Date: ? 04/02/2007 Location: ? [facility] ? Receive Date: ? 04/04/2007 Provider: ?SHAMIR KATZ SINTERING PRESS OPERATOR Copy to: ? Specimen/Source: ?ThinPrep Pap Test, Cervix/Endocervix, processed on [employer] ThinPrep Imaging System, with manual evaluation Last Menstrual Period: ? 10/29/04 Other: ? HPVA - HPV testing requested if ASC-US on the current ThinPrep Pap test. ? SPECIMEN ADEQUACY ? Satisfactory for Evaluation - transformation zone component present GENERAL CATEGORIZATION ? Negative for Intraepithelial Lesion or Malignancy ? Document reviewed and electronically signed by: ? Ara Powers, SCT(ASCP) ? Report Date: ??04/09/2007 11:29 End of Report [facility] 04/02/2007 04/04/2007 us Shamir Katz NP PATHOLOGY ORDERABLES Final R esult [facility] [address] [place] [address] documented in this encounter Visit Diagnoses Not on filedocumented in this encounter
--- OUTSIDE RECORDS SUMMARY | 2024-05-20 12:13 | XMS_ITS | Encounter Summary ---
Author Organization [facility] Address [address] [place] [address] Care Team Providers Care Matlab Developer Name Role Phone Unavailable Primary Care Provider Unavailabl e Encounter Details Date Type Department Care Team (Late st Contact Info) Description 06/18/2007 9:45 EST Hospital Encounter [facility] [address] [place] [address] Edy Montgomery MD [address] [place] [address] DR MIRANDA [address] [place] [phone] Social History Tobacco Use Types Packs/Day [...] Date/Time Associated Diagnosis Comments SURGICAL PATHOLOGY Routine 07/08/2008 0:00 EST CYTOPATHOLOGY Routine 04/13/2008 0:00 EST documented in this encounter Results * SURGICAL PATHOLOGY (07/08/2008 0:00 EST) Pathology Report: SURGICAL PATHOLOGY REPORT ? Reports generated via electronic interface contain original data; ? however they are lacking the format of the original report. ? Caution should be taken when reading/interpreti ng unformatted reports. ? Name: ? ERIKA SANCHEZ M ? Accession #: ? [id number] ? : ? 1955 (Age: 52) ??F ? Collect Date: ? 07/08/2008 ? Location: ? [facility] ? Receive Date: ? 07/08/2008 ? Provider: SAMINA GARRISON MD ? Copy to: OTIS G TANEY FLEA MARKET SELLER ? Final Pathologic Diagnosis: ? Uterus, hysterectomy: ? 1. ?Adenomyosis. ? 2. ?? Cellular leiomyomata uteri, intramural. ? 3. ?? Benign inactive endometrium with focal cystic glandular changes. ? 4. ?? Benign cervix with tunnel clusters. ? Document reviewed and electronically signed by: ? Mónica Marinelli, MD ? Report ??Date: 07/10/2008 15:58 ? By the signature above, the attending physician certifies that he/she has ? personally conducted a gross and/or microscopic examination of the described ? specimens and rendered or confirmed the above diagnosis. ? Specimen(s) Received: ? Uterus, cervix ? Clinical History: ? Long history of dyspareunia and uterine tenderness ? Gross Description: ? Received in formalin labelled Wells and uterus, cervix is a 35.0 gram ?? corpus uteri and cervix which does not include adnexa and which measures 6.5 cm fundus to cervix by 3.2 cm cornu to cornu by 3.0 cm anterior-posterior . ??The ? endometrium is light lorenzo, focally mildly hyperemic, smooth and measures 0.1 cm ?? in thickness. ??The posterior myometrium contains a 0.9 cm in diameter firm, ? white, intramural, whorled myoma while the anterior myometrium contains a ? subserosal 0.5 cm in diameter myoma. ??The myometrium otherwise is light lorenzo, ? firm, focally slightly trabecular and measures up to 1.2 cm in thickness. ??The ?? ectocervix around the os extends out to 0.5 cm more than the surrounding ? ectocervix, and the ectocervix is hebert-white and focally mildly hyperemic. ??The endocervix is unremarkable and the squamocolumnar junction is discernible. ? Civil Engineer sections of the specimen are submitted as follows: ? BLOCK ESTEVEZ ? A1 ?Anterior endomyometrium, including previously described myoma ? A2 ?Anterior endomyometrium ? A3 ?Posterior endomyometrium ? A4 ?Posterior endomyometrium including previously described myoma ? A5 ?Anterior cervix ? A6 ?Posterior cervix ? (J. Tessitore)/mpl ? End of Report ? [facility] 07/08/2008 07/08/2008 7:2 5 EST us Samina Garrison MD PATHOLOGY ORDERABLES Final Resu lt [facility] [address] [place] [address] * CYTOPATHOLOGY (04/13/2008 0:00 EST) Pathology Report: CYTOPATHOLOGY REPORT ? Reports generated via electronic interface contain original data; ? however they are lacking the format of the original report. ? Caution should be taken when reading/interpreti ng unformatted reports. ? Name: ? ERIKA SANCHEZ ? Accession #: ? [id number] ? : ? 1955 (Age: 52) ??F ?Collect Date: ? 04/13/2008 ? Location: ? [facility] ? Receive Date: ? 04/15/2008 ? Provider: ?KATH NAVAS FLEA MARKET SELLER ? Copy to: ? Specimen/Source: ?Pap Test, Cervix/Endocervix, ThinPrep Imaging System ? with manual evaluation ? Last Menstrual Period: ? 06/05 ? Other: ? HPVA - HPV testing requested if ASC-US on the current ThinPrep Pap test. ? SPECIMEN ADEQUACY ? Satisfactory for Evaluation ? - transformation zone component present ? - scant squamous epithelial component secondary to excessive inflammation ? GENERAL CATEGORIZATION ? Negative for Intraepithelial Lesion or Malignancy ? Document reviewed and electronically signed by: ? Lawrence Stumler, CT(ASCP) ? Report Date: ??04/16/2008 15:48 ? End of Report ? [facility] 04/13/2008 04/15/2008 us Kath Navas FLEA MARKET SELLER PATHOLOGY ORDERABLES Final Res ult [facility] [address] [place] [address] documented in this encounter Visit Diagnoses Not on filedocumented in this encounter
--- OUTSIDE RECORDS SUMMARY | 2024-05-20 12:13 | XMS_ITS | Encounter Summary ---
Author Organization [facility] Address [address] [place] [address] Care Team Providers Care Mailing Specialist Name Role Phone Unavailable Primary Care Provider Unavailabl e Encounter Details Date Type Department Care Team (Latest Contact Info) Description 05/08/2007 11:51 EST - 05/08/2007 11:59 EST [place] [facility] [place] [address] [place] [address] Edy Montgomery MD [address] [place] [address] DR MIRANDA [address] [place] [phone] Discharge Disposition: Auto Discharge Social History Tobacco [...]
--- OUTSIDE RECORDS SUMMARY | 2024-05-20 12:13 | XMS_ITS | Encounter Summary ---
Author Organization [facility] Address [address] [place] [address] Care Team Providers Care Dining Server Name Role Phone Yovanny Browning MD Primary Care Provider [phone] Encounter Details Date Type Department Care Team (Late st Contact Info) Description 01/02/2014 Results Only [facility] [phone] Isaías Steve PA-C [address] [place] [address] Social History Tobacco Use Types Packs/Day Years [...] Date/Time Associated Diagnosis Comments SURGICAL PATHOLOGY Routine 01/02/2014 16 :08 EDT documented in this encounter Results * SURGICAL PATHOLOGY (01/02/2014 16:08 EDT) Pathology Report: SURGICAL PATHOLOGY REPORT Reports generated via electronic interface contain original data; however they are lacking the format of the original report. Caution should be taken when reading/interpreti ng unformatted reports. Name: ? ERIKA SANCHEZ ? Accession #: ? [id number] ? : ? 1955 (Age: 58) ??F ? Collect Date: ? 01/02/2014 ? Location: ? [facility] ? Receive Date: ? 01/05/2014 ? Provider: ISAÍAS STEVE PAC Copy to: ? Final Pathologic Diagnosis: SKIN OF BACK, LEFT UPPER, PUNCH BIOPSY: - Melanocytic nevus, intradermal type. ?? Microscopic Description: Sections are of a papule with mild epidermal hyperplasia and hyperkeratosis. There is a proliferation of melanocytes within the dermis. ??The proliferation consists of nests, cords, and strands that diminish in size with descent into the dermis. ??The melanocytes are slightly enlarged but generally have round-oval nuclei and a moderate amount of cytoplasm. ??The melanocytes show stained glass artist maturation. ??(Dr. Pope)/n Document reviewed and electronically signed by: MARITO POPE MD Report ??Date: 01/07/2014 14:26 By the signature above, the attending physician certifies that he/she has personally conducted a gross and/or microscopic examination of the described specimens and rendered or confirmed the above diagnosis. Specimen(s) Received: 5.0 mm punch bx L upper back Clinical History: Left upper back 5.0 mm pedunculated mole/nevus, uniform color with regular demarcated borders; mole/nevus thru dermis Gross Description: ? Received in formalin labelled with proper patient identification (initials W, B) and left upper back is a punch biopsy of lorenzo skin (0.4 cm in diameter and 0.7 cm in thickness). ??There is a lorenzo-brown mottled exophytic papule measuring 0.4 x 0.4 x 0.3 cm. ??Bisected and submitted in 1. Dr. Wise 01/06/2014 08:14 AM End of Report [facility] 01/02/2014 16:0 8 EDT 01/05/2014 16:08 EDT us Isaías Steve PA-C PATHOLOGY ORDERABLES Tawana clemens Result [facility] [address] [place] [address] documented in this encounter Visit Diagnoses Not on filedocumented in this encounter Care Teams Dining Server Relationship Specialty Start Date End Date Yovanny Browning MD [address] [place] [address] PCP - General 03/01/10 documented as of this encounter
--- OUTSIDE RECORDS SUMMARY | 2024-05-20 12:13 | XMS_ITS | Referral Summary ---
Author Organization [facility] Address [address] [place] [address] Care Team Providers Care Human Resources Mgr Name Role Phone Yovanny Browning MD Primary Care Provider [phone] Allergies Active Allergy Reactions Criticality Noted Date [...] Orientation Not on file Plan of Treatment Not on file Advance Directives For more information, please contact: [phone] Documents on File Type Date Recorded Patient Talk Show Host Expl anation Advance Directive 05/07/2009 3:15 Care Teams Human Resources Mgr Relationship Specialty Start Date End Date Yovanny Browning MD [address] [place] [address] PCP - General 03/01/10
--- OUTSIDE RECORDS SUMMARY | 2024-05-20 12:13 | XMS_ITS | Encounter Summary ---
Author Organization [facility] Address [address] [place] [address] Care Team Providers Care Compo Caster Name Role Phone Unavailable Primary Care Provider Unavailabl e Encounter Details Date Type Department Care Team (Late st Contact Info) Description 05/15/2007 6:08 EST - 05/15/2007 11:59 EST Hospital Encounter [address] [address] Librado Lopez MD [address] [place] [address], [address] [place] [id number] Discharge Disposition: Auto Discharge Social History Tobacco [...]
--- OUTSIDE RECORDS SUMMARY | 2024-05-20 12:13 | XMS_ITS | Encounter Summary ---
Author Organization [facility] Address [address] [place] [address] Care Team Providers Care Intranet Specialist Name Role Phone Unavailable Primary Care Provider Unavailabl e Encounter Details Date Type Department Care Team (Late st Contact Info) Description 05/08/2007 Before PRISM Converted Visit (Maple) [facility] - Maple conversion [address] [place] [address] Edy Montgomery MD [address] [place] [address] DR MIRANDA [address] [place] [phone] Social History Tobacco Use Types Packs/Day Years Used Date Smoking Tobacco: Never Assessed Comments Unknown Sex and Gender Information Value Date Recorded Sex Assigned at Not on file Legal Sex Female 18:41 EST Gender Identity Not on file Sexual Orientation Not on file documented as of this encounter Plan of Treatment Not on file documented as of this encounter Visit Diagnoses * Evaluation - Edy Montgomery MD - 04/07/2009 1320 EST [facility] Division of Gynecologic On[facility], [address] [place] [address] NEW PATIENT EVALUATION - 05/08/2007 May 08, 2007 Kath Gardner NP [address] [phone] Dear Ms. Gardner: I had the pleasure of seeing Erika Harkins at the [facility] office for a new patient visit. She has been experiencing increased abdominal bloating and abdominal pain and wanted to have an evaluation with us. As you know, she is a 51-year-old woman who has been complaining of increased abdominal bloating and pain for approximately four to six weeks now. She notes that her distention has progressively gotten worse as well as the pain. She complains of right-sided pelvic/abdominal pain that is now quite constant with sharp, stabbing intervals in betweenthat. In addition to that, she also complains of dyspareunia that began in early March and some nausea. She has not had any vomiting. She reports that her bowel movements are normal for her and that she has also noted increase in her urinary frequency. She denies any chest pain, shortness of breath, vaginal bleeding or discharge, lower extremity edema or pain, or other complaints. The remainder of review of systems apart from what was describedabove is entirely negative. During the past month, she has had imaging that has included an abdominal and pelvic ultrasound as well as CT scan of the abdomen and pelvis that was done yesterday. I do have reports as well as copies of the images. I did review the images. Overall, her imaging is negative forany abnormality in the abdomen. Certainly, there does not appear to be any ascites. That would be one of the reasons for abdominal bloating that may be related to a malignancy. She does, however, have a small, cystic lesion with a question of nodularity that is approximately 3 cm in greatest dimensions, and no other free fluid is noted. That is seen both in the CT as well as the pelvic ultrasound. Her past medical history is only significant for some arthritic changes and depression and anxiety that are under control. Past Surgical History: She has had one section but several laparotomies for ectopic . She has had a total of four laparotomies and has had bilateral salpingectomies. Past [employer] History: She is a 4, para 1-0-3-1. She has been menopausal since 2004. She denies any history of abnormal Pap smears, and she is up to date with her screening. Family history is significant for breast carcinoma in a maternal grandmother. There are no other relatives with breast, colon, ovarian, or other gynecologic malignancies. Social History: She is . She denies any tobacco or alcohol use. Medicines: Lexapro, aspirin, multivitamin, and several supplements. ALLERGIES: PENICILLIN AND BACTRIM. On physical examination today, her weight is 160 pounds and height is 5 feet 10- 1/2 inches. Blood pressure is 116/72. HEENT reveals no thyromegaly or cervical adenopathy. Lungs are clear to auscultation bilaterally. Heart rate is regular in rate and rhythm. The abdomen is soft and nontender. There is obvious distention in her abdomen that she also notes is significant. She is somewhat tympanitic on examination, but I do not palpate any masses or any evidence of fluid. HerCT scan from yesterday also does not indicate any changes like that. Extremities are nontender without edema. Pelvic examination reveals normal external genitalia. The vulva, vaginal introitus, urethra, and anus are all with in normal limits. The vagina and cervix are without lesions. Bimanual rectal and vaginal examinations reveal a small amount of fullness on the right side. That area is a little bit tender but not overall representing the symptoms that she has been having. In summary, Ms. Harkins is a 51woman with increased abdominal bloating and abdominal pain. We did discuss the findings of her CT scan as well as previous ultrasound. Certainly, the lesion in the pelvisis very small, although somewhat suspicious because of the nodularity. However, she has had extensive surgical interventions in that area as well, and this could represent surgical scarring. I am notsure that this small lesion could contribute to the significant amount of discomfort that she is having. It could, however, contribute in the dyspareunia that she has been experiencing. Based on the above evaluation, I have made the following recommendations: 1. We will obtain a repeat ultrasound and CA-125 in approximately three to four weeks. I would liketo follow this cystic lesion. Her CA-125 that was done near home was within normal limits. 2. In the meantime, I would like her to have a gastroenterology evaluation. She is certainly at an age where she would warrant having a screening colonoscopy, and with all of the GI symptoms she is having at this point I think that an evaluation by gastroenterology would be helpful. 3. If the mass is persisting and symptoms are persisting, we may have to proceed with oophorectomy on that side both for symptom relief as well as diagnosis. I will plan on seeing her back here in approximately three to four weeks right after the holidays and repeat the ultrasound as well as a repeat evaluation at that time. Thank you again for allowing me to contribute to Ms. Harkins care. If you any questions regarding theabove recommendations, please feel free to call or page me directly. It is my pleasure and privilege to take care of your patient. Sincerely, Signed by Edy Montgomery MD 05/22/2007 09:36 Edy Montgomery MD Program Coordinator Executive Education, Division of [facility]/Oncology - Edy Montgomeyr MD - lw Job ID: [id number] Doc ID: [id number] cc: BRIANA Dolan NP - Edy Montgomery MD - lw Job ID: [id number] Doc ID: [id number] cc: BRIANA Dolan NP documented in this encounter
--- OUTSIDE RECORDS SUMMARY | 2024-05-20 12:13 | XMS_ITS | Encounter Summary ---
Author Organization [facility] Address [address] [place] [address] Care Team Providers Care Car Wash Manager Name Role Phone Unavailable Primary Care Provider Unavailabl e Encounter Details Date Type Department Care Team (Late st Contact Info) Description 06/18/2007 Before PRISM Converted Visit (Maple) [facility] - Maple conversion [address] [place] [address] Edy Montgomery MD [address] [place] [address] DR MIRANDA [address] [place] [phone] Social History Tobacco Use Types Packs/Day Years Used Date Smoking Tobacco: Never Assessed Comments Unknown Sex and Gender Information Value Date Recorded Sex Assigned at Not on file Legal Sex Female 18:41 EST Gender Identity Not on file Sexual Orientation Not on file documented as of this encounter Progress Notes * Edy Montgomery MD - 04/04/20092021 EST Women[facility] Service Division of Gynecologic Oncology [facility], [address] [place] [address] PROGRESS/FOLLOWUP NOTE - 06/18/2007 June 18, 2007 Kath Gardner NP [address] [phone] Dear Ms. Gardner: I had the pleasure of seeing Erika Harkins at the [facility]oncology office for a postoperative visit. She, as you know, underwent laparoscopic bilateral salpingo-oophorectomy on June 10, 2007. 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 There was no evidence of malignancy. On todays visit, she is doing well. She complains of a little bit of discharge from the right side of the lower incision, but overall her abdomen is soft, nondistended, and nontender. The incisions are healing very well without any evidence of infection or discharge. At this point, I have reassured her that there is no gynecologic pathology that she needs to worry about. I think that more than likely the symptoms she was having were probably just minor gastrointestinal-related symptoms. I asked her to just concentrate on watching for intolerances to any foods that she may have sensitivity to. Overall, I reassured her that the findings from our surgery were quite benign and that she does not need to worry about that. I do not need to see her back unless there are any problems. I would be happy to be re-involved in her care if that is the case. Thank you again for allowing me to contribute to Ms. Torin scott. If you have other questions regarding her care, please feel free to call or page me directly. It is my pleasure and privilege to take care of your patient. Sincerely, Signed by Edy Montgomery MD 06/27/2007 14:51 Edy Montgomery MD Paper Sales Manager, Division of [facility]/Oncology - Edy Montgomery MD - TRICE Job ID: [id number] Doc ID: [id number] cc: Kath Gardner NP - trice Job ID: [id number] Doc ID: [id number] cc: Kath Gardner NP documented in this encounter Plan of Treatment Not on file documented as of this encounter Visit Diagnoses Not on filedocumented in this encounter
[2024-05-20] MEDS: Ketorolac 15 MG/ML VIAL IVP (12:15)
[2024-05-20] MEDS: ACETAMINOPHEN 1,000 MG/100 ML BAG 400 MG IVPB (12:16)
[2024-05-20 12:17] LABS: Bacteria Negative HPF (Negative); C & S Indicated? No; Casts Negative LPF (Negative); Crystals Negative HPF (Negative); Epithelial Cells Moderate HPF (Negative); Mucus Negative (Negative); Other Cells Negative (Negative)
[2024-05-20 12:23] LABS: ALT 18 U/L (14-59); AST 18 U/L (15-37); Albumin 3.9 g/dL (3.4-5.0); Alkaline Phosphatase 105 U/L (46-116); Anion Gap 8.2 mmol/L (3-11); BUN 20 mg/dL (7-18); CO2 26.8 mmol/L (21.0-32.0); CREATININE 0.8 mg/dL (0.55-1.02); Chloride 105 mmol/L (98-107); Estimated GFR 80.71 (mL/min/1.73m2); Glucose 128 mg/dL (74-106); Lipase 35 U/L (<78); Potassium 3.8 mmol/L (3.5-5.1); Sodium 140 mmol/L (136-145); Total Protein 7.6 g/dL (6.4-8.2)
[2024-05-20 12:25] LABS: C-Reactive Protein < 0.50 mg/dL (<or=0.5)
[2024-05-20] MEDS: Omnipaque 350 MG/ML 100 ML BTL 75 ML IJ (12:45)
[2024-05-20] MEDS: Normal Saline - Diluent 50 ML VIAL IJ (12:47)
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
[2024-05-20] MEDS: LORazepam 0.5 MG TAB PO (13:18)
[2024-05-20] MEDS: diphenhydrAMINE 50 MG/ML VIAL (13:30)
[2024-05-20] MEDS: methylPREDNISolone SUCC 125 MG VIAL (13:32)
[2024-05-20] MEDS: LORazepam 2 MG/ML VIAL (13:32)
== END 2024-05-20 14:29 | disposition home or self-care (01) ==
PROVIDERS: Emergency Provider Physician Assistant; PCP Physician Assistant Medical
DX: R10.32 Left lower quadrant pain (principal); R11.0 Nausea; I10 Essential (primary) hypertension; E78.5 Hyperlipidemia, unspecified; E03.9 Hypothyroidism, unspecified; Z87.891 Personal history of nicotine dependence
CPT/HCPCS: 36415; 80053; 83690; 85652; 96365; 96375; 99285; 74177; 81003; 81015; 83605; 85025; 86140; J0131; J1200; J1885; J2060; J2919; J3490

== ENCOUNTER 2024-06-08 13:54 | Observation (INO) | payer SELFPAY ==
[2024-06-08] VITALS (46 sets, daily range): BP systolic 116–183; BP diastolic 52–117; PULSE 69–158; RESP 12–24; TEMP 36.6–36.9; O2SAT 95–99
--- NOTE | 2024-06-08 14:00 | RT.EKG_ITS ---
APPROVED REPORT Exam: Resting ECG Reason for Exam: tachycardia Patient Location: E HR:144 bpm ECG Measurements Heart Rate 144 AXIS NM 124 P 83 QRSd 75 QRS 82 QT 291 T 265 QTc 451 Conclusion Sinus tachycardia, rate 144 No interval abnormalities No STEMI No priors available for comparison
--- OUTSIDE RECORDS SUMMARY | 2024-06-08 14:15 | XMS_ITS | Clinical Summary ---
Author Organization [facility] Address [address] [place] [id number] Care Team Providers Care Financial Associate Name Role Phone Yovanny Browning MD Primary Care Provider [phone] Allergies Active Allergy Reactions Criticality Noted Date [...] Advance Directives For more information, please contact: [phone] Documents on File Type Date Recorded Patient Flower Maker Expl anation Advance Directive 05/07/2009 3:15 Care Teams Financial Associate Relationship Specialty Start Date End Date Yovanny Browning MD [address] [place] [address] [facility] - General 03/01/10
--- OUTSIDE RECORDS SUMMARY | 2024-06-08 14:15 | XMS_ITS | Encounter Summary ---
Author Organization [facility] Address [address] [place] [address] Care Team Providers Care Repair Operator Name Role Phone Unavailable Primary Care Provider Unavailabl e Encounter Details Date Type Department Care Team (Latest Contact Info) Description 05/08/2007 11:51 EST - 05/08/2007 11:59 EST Hospital Encounter [facility] [address] [place] [address] Edy Montgomery MD [address] [place] [address] DR MIRANDA [address] [place] [phone] Discharge Disposition: Auto Discharge Social History [...]
--- OUTSIDE RECORDS SUMMARY | 2024-06-08 14:15 | XMS_ITS | Encounter Summary ---
Author Organization [facility] Address [address] [place] [address] Care Team Providers Care Relations Director Name Role Phone Unavailable Primary Care Provider Unavailabl e Encounter Details Date Type Department Care Team (Late st Contact Info) Description 02/24/2010 Results Only [facility] ([facility]) [address] [place] [address] Lila Arboleda MD [address] [place] [address] Social History Tobacco Use Types [...] DANIEL, ERIKA M ? Accession #: ? [id number] ? : ? 1955 (Age: 54) ??F ? Collect Date: ? 02/24/2010 ? Location: ? [facility] ? Receive Date: ? 02/25/2010 ? Provider: LILA ARBOLEDA MD ? Copy to: OTIS BARTON OWNER ? Final Pathologic Diagnosis: ? Skin of [...] ant. thigh ? Clinical History: ? Lesion [id number] irritated; 0.5 cm raised light brown lesion [...] MD PATHOLOGY ORDERABLES Final Resu lt [facility] [address] [place] [address] documented in this encounter Visit Diagnoses Not on filedocumented in this encounter
--- OUTSIDE RECORDS SUMMARY | 2024-06-08 14:15 | XMS_ITS | Encounter Summary ---
Author Organization [facility] Address [address] [place] [address] Care Team Providers Care Char Belt Operator Name Role Phone Unavailable Primary Care Provider Unavailabl e Encounter Details Date Type Department Care Team (Late st Contact Info) Description 05/15/2007 Before PRISM Converted Visit (Map[facility]) [facility] [address] [place] [address] Librado Andrade MD [address] [facility] [address] [place] [address] Social History Tobacco Use Types Packs/Day Years Used Date Smoking Tobacco: Never Assessed Comments Unknown Sex and Gender Information Value Date Recorded Sex Assigned at Not on file Legal Sex Female 18:41 EST Gender Identity Not on file Sexual Orientation Not on file documented as of this encounter Procedure Notes * Librado Andrade MD - 04/06/2009 2030 EST [facility] Colonoscopy Procedure Report Attending Physician: LIBRADO ANDRADE [...] ANDRADE MD, M.D. on 05/15/2007 at 08:05 [facility] Document ID: [id number] documented in this encounter Plan of Treatment Not on file documented as of this encounter Visit Diagnoses Not on filedocumented in this encounter
--- OUTSIDE RECORDS SUMMARY | 2024-06-08 14:15 | XMS_ITS | Encounter Summary ---
Author Organization [facility] Address [address] [place] [address] Care Team Providers Care Hardness Inspector Name Role Phone Unavailable Primary Care Provider Unavailabl e Encounter Details Date Type Department Care Team (Late st Contact Info) Description 06/18/2007 9:45 EST Hospital Encounter [facility] [address] [place] [address] Edy Montgomery MD [address] [place] [address] DR MIRANDA [address] [place] [phone] Social History Tobacco Use Types Packs/Day [...] ERIKA SANCHEZ M ? Accession #: ? [id number] ? : ? 1955 (Age: 52) ??F ? Collect Date: ? 07/08/2008 ? Location: ? [facility] ? Receive Date: ? 07/08/2008 ? Provider: SAMINA GARRISON MD ? Copy to: OTIS G TANEY WORM FARMER ? Final Pathologic Diagnosis: ? Uterus, hysterectomy: [...] and the squamocolumnar junction is discernible. ? Wad Lubricator sections of the specimen are submitted as [...] Final Resu lt [facility] [address] [place] [address] * CYTOPATHOLOGY (04/13/2008 0:00 EST) Pathology Report: CYTOPATHOLOGY REPORT ? Reports generated via electronic interface contain original data; ? however they are lacking the format of the original report. ? Caution should be taken when reading/interpreti ng unformatted reports. ? Name: ? ERIKA SANCHEZ ? Accession #: ? [id number] ? : ? 1955 (Age: 52) ??F ?Collect Date: ? 04/13/2008 ? Location: ? [facility] ? Receive Date: ? 04/15/2008 ? Provider: ?KATH NAVAS WORM FARMER ? Copy to: ? Specimen/Source: ?Pap Test, [...] [facility] 04/13/2008 04/15/2008 us Kath Navas WORM FARMER PATHOLOGY ORDERABLES Final Res ult [facility] [address] [place] [address] documented in this encounter Visit Diagnoses Not on filedocumented in this encounter
--- OUTSIDE RECORDS SUMMARY | 2024-06-08 14:15 | XMS_ITS | Encounter Summary ---
Author Organization [facility] Address [address] [place] [address] Care Team Providers Care Credit Director Name Role Phone Unavailable Primary Care Provider Unavailabl e Encounter Details Date Type Department Care Team (Late st Contact Info) Description 06/04/2007 Before PRISM Converted Visit (Maple) [facility] - [facility] conversion [address] [place] [address] Edy Montgomery MD [address] [place] [address] DR MIRANDA [address] [place] [phone] Social History Tobacco Use Types Packs/Day Years Used Date Smoking Tobacco: Never Assessed Comments Unknown Sex and Gender Information Value Date Recorded Sex Assigned at Not on file Legal Sex Female 18:41 EST Gender Identity Not on file Sexual Orientation Not on file documented as of this encounter Progress Notes * Edy Montgomery MD - 04/06/20092035 EST [facility] Division of Gynecologic Oncology [facility], Level [address] [place] [address] June 04, 2007 Kath Gardner NP [facility] [address] [place] [address] Dear Ms. Gardner: I had the pleasure of seeing Erika Harkins back at the PILOT TEACHER/Oncology office for a followup visit. I had [...] Montgomery MD 06/06/2007 15:32 Edy Montgomery MD Tacking Machine Operator, Division of PILOT TEACHER/Oncology - Edy Montgomery MD - dis Job ID: [id number] Doc ID: [id number] cc: BRIANA Méndez MD Emmanuel Soultanakis, MD - dis Job ID: [id number] Doc ID: [id number] cc: BRIANA Méndez MD documented in this encounter Plan of Treatment Not on file documented as of this encounter Visit Diagnoses Not on filedocumented in this encounter
--- OUTSIDE RECORDS SUMMARY | 2024-06-08 14:15 | XMS_ITS | Referral Summary ---
Author Organization [facility] Address [address] [place] [address] Care Team Providers Care Lopper Name Role Phone Yovanny Browning MD Primary Care Provider [phone] Allergies Active Allergy Reactions Criticality Noted Date [...] Advance Directives For more information, please contact: [phone] Documents on File Type Date Recorded Patient Headend Technician Expl anation Advance Directive 05/07/2009 3:15 Care Teams Lopper Relationship Specialty Start Date End Date Yovanny Browning MD [address] [place] [address] PCP - General 03/01/10
--- OUTSIDE RECORDS SUMMARY | 2024-06-08 14:15 | XMS_ITS | Encounter Summary ---
Author Organization [facility] Address [address] [place] [address] Care Team Providers Care Felt Tipping Machine Tender Name Role Phone Carolin Denson MD Primary Care Provider [phone] Encounter Details Date Type Department Care Team (Late st Contact Info) Description 06/10/2007 Results Only [facility] OBGYN Services - [address] [address] Leobardo Montgomery MD [address] [place] [address] DR MIRANDA [address] [place] [phone] Social History Tobacco Use Types Packs/Day [...] ? ERIKA SANCHEZ ? Accession #: ? [id number] : ? 1955 (Age: 51) ??F ?Collect [...] ORDERABLES F inal Result [facility] [address] [place] [address] * SURGICAL PATHOLOGY (06/10/2007 0:00 EST) Pathology Report: SURGICAL PATHOLOGY REPORT Reports generated via electronic interface contain original data; however they are lacking the format of the original report. Caution should be taken when reading/interpretin g unformatted reports. Name: ? ERIKA SANCHEZ ? Accession #: ? [id number] ? : ? 1955 (Age: 51) ??F ? Collect Date: ? 06/10/2007 ? Location: ? [facility] ? Receive Date: ? 06/10/2007 ? Provider: LEOBARDO MONTGOMERY MD Copy to: CAROLIN NAVAS CURATOR OF COLLECTIONS ? Final Pathologic Diagnosis: A. ?Fallopian tube [...] 0.5 cm white-lorenzo, firm, cauliflower-like nodule. ??A counter sales representative sections of the lorenzo-yellow external nodule along with the cauliflower-like lesion is submitted for frozen section (FS1) with the interpretation rendered as above. ??The remainder of the ovarian parenchyma is lorenzo-white. ??A discrete fragment of fallopian tube is not identified, however, per the surgeon, the patient has had a previous partial salpingectomy. Coil Winder Strap sections to include 75% of the ovary are submitted as follows BLOCK ESTEVEZ A1 ?Frozen section control A2 ?Ovary to include central cyst wall and remainder of cauliflower-like lesion A3, A4 ?Coil Winder Strap sections of ovary to include serosa Received fresh labelled Torin and left ovary is a 3 gram, 2.3 x 1.7 x 0.7 cm ovary with a lorenzo-white lobulated serosa. ??Several lorenzo-white firm, serosal nodules ranging from 0.3 to 0.9 cm in greatest dimension are identified. ??Two counter sales representative sections to include the nodules are submitted for frozen section (FS2) with the interpretation rendered as above. ??The ovary is entirely submitted as: BLOCK ESTEVEZ B1 ?B1 (FS2) control B2, B3 ?Ovary with serosal nodules (Scott Baird)/mpl End of Report [facility] 06/10/2007 06/10/2007 16: 07 EST us Leobardo Montgomery MD PATHOLOGY ORDERABLES F inal Result [facility] [address] [place] [address] documented in this encounter Visit Diagnoses Not on filedocumented in this encounter Care Teams Felt Tipping Machine Tender Relationship Specialty Start Date End Date Carolin Dneson MD [address] [place] [address] PCP - General 03/01/10 documented as of this encounter
--- OUTSIDE RECORDS SUMMARY | 2024-06-08 14:15 | XMS_ITS | Encounter Summary ---
Author Organization [facility] Address [address] [place] [address] Care Team Providers Care Electrical Electronics Engineers Name Role Phone Unavailable Primary Care Provider Unavailabl e Encounter Details Date Type Department Care Team (Late st Contact Info) Description 06/18/2007 Before PRISM Converted Visit (Maple) [facility] - Maple conversion [address] [place] [address] Edy Montgomery MD [address] [place] [address] DR MIRANDA [address] [place] [phone] Social History Tobacco Use Types Packs/Day [...] Health Care Service Division of Gynecologic Oncology [facility], Level 4 [address] [place] [address] PROGRESS/FOLLOWUP NOTE - 06/18/2007 June 18, 2007 Kath Gardner NP [address] [address] Dear Ms. Gardner: I had the pleasure of seeing Erika Harkins at the [facility]IDENCE COUNSELOR-oncology office for a postoperative visit. She, as [...] Montgomery MD 06/27/2007 14:51 Edy Montgomery MD Release Manager, Division of RESIDENCE COUNSELOR/Oncology - Edy Montgomery MD - TRICE Job ID: [id number] Doc ID: [id number] cc: Kath Gardner NP - trice Job ID: [id number] Doc ID: [id number] cc: Kath Gardner NP documented in this encounter Plan of Treatment Not on file documented as of this encounter Visit Diagnoses Not on filedocumented in this encounter
--- OUTSIDE RECORDS SUMMARY | 2024-06-08 14:15 | XMS_ITS | Encounter Summary ---
Author Organization [facility] Address [address] [place] [address] Care Team Providers Care Doorperson Name Role Phone Unavailable Primary Care Provider Unavailabl e Encounter Details Date Type Department Care Team (Late st Contact Info) Description 06/04/2007 Results Only [facility] OBGYN Services - [facility] [address] [place], [place] [phone] Edy Montgomery MD [address] [place] [address] DR MIRANDA [address] [place] [phone] Social History Tobacco Use Types Packs/Day [...] ORDER SCARLETT Final Result Performing Organization Address [facility] de Phone Number [facility] [address] [place] [address] * PROTIME (06/04/2007 12:24 EST) Pro Time [...] ORDER SCARLETT Final Result Performing Organization Address [facility] Phone Number [facility] [address] [place] [address] * COMPREHENSIVE METABOLIC PANEL (06/04/2007 12:24 EST) [...] GAS ORDERABLES Final Result Performing Organization Address City/State/[facility] Co de Phone Number [facility] [address] [place] [address] * (ABNORMAL) CBC WITH AUTO DIFF - [...] Neutrophils 4.66 2.20 - 8.85 K/cmm [facility] ABS Lymphs 2.30 1.09 - 3.30 [...] O RDERABLES Final Result Performing Organization Address [facility] Co de Phone Number [facility] [address] [place] [address] * CA 125 (06/04/2007 12:24 EST) CA 125 13 0 - 35 U/ml [facility] Comment: Serum CA125 concentrations should not be interpreted as absolute evidence for the presence or absence of malignant disease. Assayed utilizing [employer] Clinical Diagn[employer] technology. Values obtained by using different assay methods cannot be used interchangeably. 06/04/2007 12:2 4 EST 06/04/2007 12:59 EST Edy Montgomery MD CHEMISTRY & BLOOD GAS ORDERABLES Final Result Performing Organization Address [facility] Co de Phone Number [facility] [address] [place] [address] documented in this encounter Visit Diagnoses Not on filedocumented in this encounter
--- OUTSIDE RECORDS SUMMARY | 2024-06-08 14:15 | XMS_ITS | Encounter Summary ---
Author Organization [facility] Address [address] [place] [address] Care Team Providers Care Manager Country Name Role Phone Yovanny Browning MD Primary Care Provider Encounter Details Date Type Department Care Team (Latest Contact Info) Description 01/02/2014 12:28 EDT - 01/02/2014 23:59 EDT Hospital Encounter [address] [address] Unknown, ProviderMD Discharge Disposition: Home or Self Care Social [...] Code Departure Means Destination Home or Self Snf documented in this encounter Plan of Treatment Not on file documented as of this encounter Visit Diagnoses Not on filedocumented in this encounter Care Teams Manager Country Relationship Specialty Start Date End Date Yovanny Browning MD [address] [place] [phone] PCP - General 03/01/10 documented as of this encounter
--- OUTSIDE RECORDS SUMMARY | 2024-06-08 14:15 | XMS_ITS | Encounter Summary ---
Author Organization [facility] Address [address] [place] [address] Care Team Providers Care Hospital Pharmacist Name Role Phone Yovanny Browning MD Primary Care Provider [phone] Encounter Details Date Type Department Care Team (Late st Contact Info) Description 01/02/2014 Results Only [facility] [phone] Isaías Steve PA-C [address] [place] [phone] Social History Tobacco Use Types [...] ? ERIKA SANCHEZ ? Accession #: ? [id number] ? : ? 1955 (Age: 58) ??F [...] moderate amount of cytoplasm. ??The melanocytes show heavy forger maturation. ??(Dr. Pope)/n Document reviewed and electronically [...] PA-C PATHOLOGY ORDERABLES Tawana clemens Result [facility] [address] [place] [address] documented in this encounter Visit Diagnoses Not on filedocumented in this encounter Care Teams Hospital Pharmacist Relationship Specialty Start Date End Date Yovanny Browning MD [address] [place] [phone] PCP - General 03/01/10 documented as of this encounter
--- OUTSIDE RECORDS SUMMARY | 2024-06-08 14:15 | XMS_ITS | Encounter Summary ---
Author Organization [facility] Address [address] [place] [address] Care Team Providers Care Stencil Cutter Name Role Phone Unavailable Primary Care Provider Unavailabl e Encounter Details Date Type Department Care Team (Late st Contact Info) Description 05/08/2007 Before PRISM Converted Visit (Maple) [facility] - Maple conversion [address] [place] [address] Edy Montgomery MD [address] [place] [address] DR MIRNADA [address] [place] [phone] Social History Tobacco Use Types Packs/Day [...] Service Division of Gynecologic Oncology [facility], Level 4 [address] [place] [address] NEW PATIENT EVALUATION - 05/08/2007 May 08, 2007 Kath Gardner NP [address] [address] Dear Ms. Gardner: I had the pleasure of seeing Erika Harkins at the SHANK FAKER-oncology office for a new patient visit. She [...] laparotomies and has had bilateral salpingectomies. 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 [...] Montgomery MD 05/22/2007 09:36 Edy Montgomery MD Linen Manager, Division of SHANK FAKER/Oncology - Edy Montgomery MD - lw Job ID: [id number] Doc ID: [id number] cc: BRIANA Dolan NP - Edy Montgomery MD - lw Job ID: [id number] Doc ID: [id number] cc: BRIANA Dolan NP documented in this encounter
--- OUTSIDE RECORDS SUMMARY | 2024-06-08 14:15 | XMS_ITS | Encounter Summary ---
Author Organization [facility] Address [address] [place] [address] Care Team Providers Care Pop Singer Name Role Phone Unavailable Primary Care Provider Unavailabl e Encounter Details Date Type Department Care Team (Latest Contact Info) Description 06/10/2007 11:32 EST - 06/10/2007 11:59 EST Hospital Encounter [facility] Perioperative Services- [address] [address] Edy Montgomery MD [address] [place] [address] DR MIRANDA [address] [place] [phone] Discharge Disposition: Home or Self Care [...] SURGEON: Melva De Leon MDEmmanuel Soultanakis, MD GUN TESTER: ?? PREOPERATIVE DIAGNOSIS Pelvic mass. POSTOPERATIVE DIAGNOSIS [...] Montgomery MD 06/27/2007 14:50 Edy Montgomery MD White Metal Caster, Division of ORE ROASTER/Oncology - Edy Montgomery MD A - CIRCULAR HEAD SAW OPERATOR Job ID: [id number] Document ID: [id number] cc: BRIANA Méndez MD Edy Montgomery MD White Metal Caster, Division of ORE ROASTER/Oncology - Edy Montgomery MD A Neetu jimenez Job ID: [id number] Document ID: [id number] cc: BRIANA Méndez MD documented in this encounter Plan of Treatment Not on file documented as of this encounter Visit Diagnoses Not on filedocumented in this encounter
--- OUTSIDE RECORDS SUMMARY | 2024-06-08 14:15 | XMS_ITS | Encounter Summary ---
Author Organization [facility] Address [address] [place] [address] Care Team Providers Care Section Forest Fire Warden Name Role Phone Unavailable Primary Care Provider Unavailabl e Encounter Details Date Type Department Care Team (Late st Contact Info) Description 05/15/2007 6:08 EST - 05/15/2007 11:59 EST Hospital Encounter [address] [address] Librado Lopez MD [address] [place] [address], [address] [place] [phone] Discharge Disposition: Auto Discharge Social History Tobacco [...]
--- OUTSIDE RECORDS SUMMARY | 2024-06-08 14:15 | XMS_ITS | Encounter Summary ---
Author Organization [facility] Address [address] [place] [address] Care Team Providers Care Zigzag Appliquer Name Role Phone Unavailable Primary Care Provider Unavailabl e Encounter Details Date Type Department Care Team (Late st Contact Info) Description 06/25/2009 Abstract [facility] OBGYN Services - [facility] [address] [place], [place] [phone] Unknown, Provider, Social History Tobacco Use Types [...]
--- OUTSIDE RECORDS SUMMARY | 2024-06-08 14:15 | XMS_ITS | Encounter Summary ---
Author Organization [facility] Address [address] [place] [address] Care Team Providers Care Forestry Worker Name Role Phone Unavailable Primary Care Provider Unavailabl e Encounter Details Date Type Department Care Team (Late st Contact Info) Description 04/02/2007 Results Only [facility] - Maple conversion [address] [place] [address] Shamir Katz, BRIANA [address] [place] [phone] Social History Tobacco Use Types [...] ? ERIKA SANCHEZ ? Accession #: ? [id number] : ? 1955 (Age: 51) ??F ?Collect Date: ? 04/02/2007 Location: ? [facility] ? Receive Date: ? 04/04/2007 Provider: ?SHAMIR KATZ CASTING DIRECTOR Copy to: ? Specimen/Source: ?ThinPrep Pap Test, Cervix/Endocervix, processed on [employer]ay ThinPrep Imaging System, with manual evaluation Last [...] Final R esult [facility] [address] [place] [address] documented in this encounter Visit Diagnoses Not on filedocumented in this encounter
--- OUTSIDE RECORDS SUMMARY | 2024-06-08 14:15 | XMS_ITS | Encounter Summary ---
Author Organization [facility] Address [address] [place] [address] Care Team Providers Care Maintenance Team Member Name Role Phone Unavailable Primary Care Provider Unavailabl e Encounter Details Date Type Department Care Team (Latest Contact Info) Description 06/04/2007 10:10 EST - 06/04/2007 11:59 EST Hospital Encounter [facility] [address] [place] [address] Edy Montgomery MD [address] [place] [address] DR MIRANDA [address] [place] [phone] Discharge Disposition: Auto Discharge Social History Tobacco [...] Procedure Name Priority Date/Time Associated Diagnosis Comments DESIGN TECHNICIAN US PELVIS TRANSVAGINAL 06/04/2007 11:39 EST documented in this encounter Results * DESIGN TECHNICIAN US PELVIS TRANSVAGINAL (06/04/2007 11:39 EST) Anatomical [...] T 06/05/07 /altagracia Edy Montgomery MD G DESIGN TECHNICIAN ORDERABLES Final Result documented in this encounter Visit Diagnoses Not on filedocumented in this encounter
--- NOTE | 2024-06-08 14:45 | DI.CT_ITS ---
Exam(s) CT ABDOMEN PELVIS WO EXAM: CT ABDOMEN PELVIS WO CLINICAL HISTORY: Sudded worsening of LLQ abd pain, colo prepped. TECHNIQUE: Imaging Protocol: Axial computed tomography images with coronal and sagittal reformatted images were created and reviewed. COMPARISON: CT CT ABDOMEN PELVIS W from 05/20/2024 FINDINGS: ABDOMEN: Lung Bases: Normal where visualized. Liver: Normal density. There is stable tiny hypodensities in the liver. Likely reflect small cysts. No suspicious hepatic lesions are present. Gallbladder and biliary tract: No radiodense calculus or biliary ductal dilation. Pancreas: Normal density, no abnormal calcifications or inflammatory process. Spleen: Normal. Kidneys: Normal size, contour and axis.No radiodense stones or obstructive uropathy. No masses seen. Adrenal glands: No mass is seen. Lymph nodes: Within normal limits. Abdominal Aorta: Abdominal portion non-dilated. Atherosclerotic calcification is present. PELVIS: Bladder:Symmetric distention, no gross wall thickening. Bowel: There are diverticula seen in the colon, but no evidence of acute diverticulitis. There is no evidence of bowel obstruction or bowel wall thickening. There is fluid seen throughout the colon wh ich may reflect a diarrheal illness. This may also reflect the patient's colonoscopy preparation. Peritoneal cavity: No ascites, collection or mesenteric inflammatory response. No free air. Reproductive organs: Status post hysterectomy. Bones: Within normal limits. Soft Tissues: Within normal limits. IMPRESSION: 1. No evidence of nephrolithiasis or obstructive uropathy. 2. Colonic diverticulosis without evidence of acute diverticulitis. 3. Fluid seen throughout the colon which may represent a diarrheal illness. The patient reportedly i s undergoing a colonoscopy preparation which may also give this appearance. RADIATION DOSE DELIVERED: 250.29mGy.cm Total DLP DATA REPOSITORY: All CT scans at this facility are submitted to the National Radiology Data Registry (NRDR) Dose Index Registry (DIR) with the [employer] [place] [employer] (ACR). RADIATION OPTIMIZATION: All CT scans at this facility use at least one of these dose optimization te chniques: automated exposure control; mA and/or kV adjustment per patient size (includes targeted exa ms where dose is matched to clinical indication); or iterative reconstruction.
[2024-06-08 15:13] LABS: Abs Immature Grans 0.02 10^3/uL (0.0-0.06); Absolute Eosinophil Count 0.04 10^3/uL (0.0-0.7); Absolute Monocyte Count 0.63 10^3/uL (0.1-0.8); Absolute Neutrophil Count 7.16 10^3/uL (1.2-6.7); Basophils % 0.9 %; Eosinophils % 0.4 %; HCT 45.8 % (36.0-46.0); HGB 16.1 g/dL (11.2-15.7); Immature Grans % 0.2 %; Lymphocytes % 25.4 %; MCH 31.9 pg (27.0-33.0); MCHC 35.2 % (32.0-36.0); MCV 91 fL (80-95); Monocytes % 5.9 %; Neutrophils % 67.2 %; Platelet Count 422 10^3/uL (130-400); RBC 5.05 10^6/uL (3.93-5.22); RDW-SD 40.1 fL; WBC 10.65 10^3/uL (4.4-10.8)
[2024-06-08] MEDS: Ondansetron 4 MG/2 ML VIAL IVP ×3 (15:14→21:40)
[2024-06-08] MEDS: Lactated Ringers 1,000 ML 1000 ML IV (15:14)
[2024-06-08 15:27] LABS: Lipase 38 U/L (<78)
[2024-06-08 15:32] LABS: ALT 14 U/L (14-59); AST 12 U/L (15-37); Albumin 4.4 g/dL (3.4-5.0); Alkaline Phosphatase 105 U/L (46-116); Anion Gap 15.7 mmol/L (3-11); BUN 21 mg/dL (7-18); Bilirubin, Total 0.55 mg/dL (0.2-1.0); CO2 22.3 mmol/L (21.0-32.0); Chloride 100 mmol/L (98-107); Estimated GFR 61.75 (mL/min/1.73m2); Glucose 149 mg/dL (74-106); Magnesium 1.9 mg/dL (1.8-2.4); Potassium 3.9 mmol/L (3.5-5.1); Sodium 138 mmol/L (136-145); Total Protein 8.5 g/dL (6.4-8.2); Troponin I 9 ng/L (<or=51)
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
[2024-06-08 16:36] LABS: Lactate 2.5 mmol/L (0.6-1.4)
[2024-06-08 16:54] LABS: Troponin I 11 ng/L (<or=51)
[2024-06-08 17:04] LABS: Bilirubin Negative (Negative); Blood Small (Negative); Clarity Clear (Clear); Glucose Negative (Negative); Ketones >=160 mg/dL (Negative); Leukocyte Esterase Trace (Negative); Nitrite Negative (Negative); Urobilinogen 0.2 mg/dL (Up to 0.2); pH 6.5 (5-8)
[2024-06-08] MEDS: Normal Saline Flush 10 ML SYR IVP ×2 (17:04→21:42)
[2024-06-08] MEDS: ACETAMINOPHEN 1,000 MG/100 ML BTL 200 MG (17:05)
[2024-06-08 17:13] LABS: Bacteria Rare HPF (Negative); C & S Indicated? No; Casts Negative LPF (Negative); Crystals Negative HPF (Negative); Epithelial Cells Few HPF (Negative); Mucus Moderate (Negative)
[2024-06-08] MEDS: Lactated Ringers 500 ML IV (17:35)
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
[2024-06-08] MEDS: Gabapentin 100 MG CAP 200 MG PO (20:23)
[2024-06-08] MEDS: ACETAMINOPHEN 650 MG/65 ML BAG 260 MG IVPB (20:24)
[2024-06-08] MEDS: Lactated Ringers 1,000 ML 100 ML IV (20:25)
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
--- OUTSIDE RECORDS SUMMARY | 2024-06-08 21:18 | XMS_ITS | Referral Summary ---
Author Organization [facility] Address [address] [place] [id number] Care Team Providers Care Vp Delivery Name Role Phone Yovanny Browning MD Primary Care Provider [phone] Allergies Active Allergy Reactions Criticality Noted Date [...] Advance Directives For more information, please contact: [phone] Documents on File Type Date Recorded Patient Regulatory Compliance Engineer Expl anation Advance Directive 05/07/2009 3:15 Care Teams Vp Delivery Relationship Specialty Start Date End Date Yovanny Browning MD [address] [place] [id number] PCP - General 03/01/10
--- OUTSIDE RECORDS SUMMARY | 2024-06-08 21:18 | XMS_ITS | Clinical Summary ---
Author Organization [facility] Address [address] [place] [address] Care Team Providers Care Automatic Vulcanizing Lead Operator Name Role Phone Yovanny Browning MD Primary Care Provider [phone] Allergies Active Allergy Reactions Criticality Noted Date [...] Advance Directives For more information, please contact: [phone] Documents on File Type Date Recorded Patient Bar Supervisor Expl anation Advance Directive 05/07/2009 3:15 Care Teams Automatic Vulcanizing Lead Operator Relationship Specialty Start Date End Date Yovanny Browning MD [address] [place] [address] [facility] - General 03/01/10
--- OUTSIDE RECORDS SUMMARY | 2024-06-08 21:19 | XMS_ITS | Encounter Summary ---
Author Organization [facility] Address [address] [place] [address] Care Team Providers Care Post Anesthesia Room Nurse Name Role Phone Unavailable Primary Care Provider Unavailabl e Encounter Details Date Type Department Care Team (Late st Contact Info) Description 05/15/2007 Before PRISM Converted Visit (Maple) [facility] - Maple conversion [address] [place] [address] Librado Andrade MD [address] [facility] [address] [place] [address] Social History Tobacco Use Types Packs/Day Years Used Date Smoking Tobacco: Never Assessed Comments Unknown Sex and Gender Information Value Date Recorded Sex Assigned at Not on file Legal Sex Female 18:41 EST Gender Identity Not on file Sexual Orientation Not on file documented as of this encounter Procedure Notes * Librado Andrade MD - 04/06/2009 2030 EST [facility] Colonoscopy Procedure Report Attending Physician: LIBRADO [...] ANDRADE MD, M.D. on 05/15/2007 at 08:05 [facility] Document ID: [id number] documented in this encounter Plan of Treatment Not on file documented as of this encounter Visit Diagnoses Not on filedocumented in this encounter
--- OUTSIDE RECORDS SUMMARY | 2024-06-08 21:19 | XMS_ITS | Encounter Summary ---
Author Organization [facility] Address [address] [place] [address] Care Team Providers Care Epic Beacon Analyst Name Role Phone Yovanny Browning MD Primary Care Provider [phone] Encounter Details Date Type Department Care Team (Latest Contact Info) Description 01/02/2014 12:28 EDT - 01/02/2014 23:59 EDT Hospital Encounter [address] [address] Unknown, ProviderMD Discharge Disposition: Home or Self [...] Code Departure Means Destination Home or Self [facility] documented in this encounter Plan of Treatment Not on file documented as of this encounter Visit Diagnoses Not on filedocumented in this encounter Care Teams Epic Beacon Analyst Relationship Specialty Start Date End Date Yovanny Browning MD [address] [place] [address] PCP - General 03/01/10 documented as of this encounter
--- OUTSIDE RECORDS SUMMARY | 2024-06-08 21:19 | XMS_ITS | Encounter Summary ---
Author Organization [facility] Address [address] [place] [address] Care Team Providers Care Congressional Assistant Name Role Phone Unavailable Primary Care Provider Unavailabl e Encounter Details Date Type Department Care Team (Latest Contact Info) Description 05/08/2007 11:51 EST - 05/08/2007 11:59 EST Hospital Encounter [facility] [address] [place] [address] Edy Montgomery MD [address] [place] [address] DR MIRANDA [address] [place] [phone] Discharge Disposition: Auto Discharge Social History [...]
--- OUTSIDE RECORDS SUMMARY | 2024-06-08 21:19 | XMS_ITS | Encounter Summary ---
Author Organization [facility] Address [address] [place] [address] Care Team Providers Care Unit Support Representative Name Role Phone Unavailable Primary Care Provider Unavailabl e Encounter Details Date Type Department Care Team (Late st Contact Info) Description 04/02/2007 Results Only [facility] - Maple conversion [address] [place] [address] Shamir Katz, BRIANA [address] [place] [address] Social History Tobacco Use Types [...] ? ERIKA SANCHEZ ? Accession #: ? [id number] : ? 1955 (Age: 51) ??F ?Collect Date: ? 04/02/2007 Location: ? [facility] ? Receive Date: ? 04/04/2007 Provider: ?SHAMIR KATZ LONG LINE TEAMSTER Copy to: ? Specimen/Source: ?ThinPrep Pap Test, Cervix/Endocervix, processed on Certess ThinPrep Imaging System, with manual evaluation Last [...] Final R esult [facility] [address] [place] [address] documented in this encounter Visit Diagnoses Not on filedocumented in this encounter
--- OUTSIDE RECORDS SUMMARY | 2024-06-08 21:19 | XMS_ITS | Encounter Summary ---
Author Organization [facility] Address [address] [place] [address] Care Team Providers Care Beauty Specialist Name Role Phone Unavailable Primary Care Provider Unavailabl e Encounter Details Date Type Department Care Team (Late st Contact Info) Description 05/08/2007 Before PRISM Converted Visit (Maple) [facility] - Maple conversion [address] [place] [address] Edy Montgomery MD [address] [place] [address] DR MIRANDA [address] [place] [phone] Social History Tobacco Use Types Packs/Day [...] Service Division of Gynecologic Oncology [facility], Level 4 [address] [place] [address] NEW PATIENT EVALUATION - 05/08/2007 May 08, 2007 Kath Gardner NP [address] [address] Dear Ms. Gardner: I had the pleasure of seeing Erika Harkins at the CLINICAL TRIAL ASSISTANT-oncology office for a new patient visit. She [...] laparotomies and has had bilateral salpingectomies. Past DAMAGE INSIDE ADJUSTER History: She is a 4, para 1-0-3-1. [...] Montgomery MD 05/22/2007 09:36 Edy Montgomery MD Pickle Pumper, Division of CLINICAL TRIAL ASSISTANT/Oncology - Edy Montgomery MD - lw Job ID: [id number] Doc ID: [id number] cc: BRIANA Dolan NP - Edy Montgomery MD - lw Job ID: [id number] Doc ID: [id number] cc: BRIANA Dolan NP documented in this encounter
--- OUTSIDE RECORDS SUMMARY | 2024-06-08 21:19 | XMS_ITS | Encounter Summary ---
Author Organization [facility] Address [address] [place] [address] Care Team Providers Care Payroll And Benefits Coordinator Name Role Phone Unavailable Primary Care Provider Unavailabl e Encounter Details Date Type Department Care Team (Latest Contact Info) Description 06/10/2007 11:32 EST - 06/10/2007 11:59 EST Hospital Encounter [facility] Perioperative Services- [address] [address] Edy Montgomery MD [address] [place] [address] DR MIRANDA [address] [place] [phone] Discharge Disposition: Home or Self Care [...] SURGEON: Melva De Leon MDEmmanuel Soultanakis, MD BUTCHER MEAT: ?? PREOPERATIVE DIAGNOSIS Pelvic mass. POSTOPERATIVE DIAGNOSIS [...] Montgomery MD 06/27/2007 14:50 Edy Montgomery MD Erection Shop Supervisor, Division of SENIOR CLERK/Oncology - Edy Montgomery MD A - RETAIL TIRE SALES MANAGER Job ID: [id number] Document ID: [id number] cc: BRIANA Méndez MD Edy Montgomery MD Erection Shop Supervisor, Division of SENIOR CLERK/Oncology - Edy Montgomery MD A Neetu jimenez Job ID: [id number] Document ID: [id number] cc: BRIANA Méndez MD documented in this encounter Plan of Treatment Not on file documented as of this encounter Visit Diagnoses Not on filedocumented in this encounter
--- OUTSIDE RECORDS SUMMARY | 2024-06-08 21:19 | XMS_ITS | Encounter Summary ---
Author Organization [facility] Address [address] [place] [address] Care Team Providers Care Printing Agent Name Role Phone Unavailable Primary Care Provider Unavailabl e Encounter Details Date Type Department Care Team (Late st Contact Info) Description 02/24/2010 Results Only [facility] Laboratory Services - [facility] ([facility]) [address] [place] [address] Lila Arboleda MD [address] [place] [address] Social History Tobacco Use Types [...] DANIEL, ERIKA M ? Accession #: ? [id number] ? : ? 1955 (Age: 54) ??F ? Collect Date: ? 02/24/2010 ? Location: ? [facility] ? Receive Date: ? 02/25/2010 ? Provider: LILA ARBOLEDA MD ? Copy to: OTIS BARTON HELIARC WELDER ? Final Pathologic Diagnosis: ? Skin of [...] ant. thigh ? Clinical History: ? Lesion [id number] irritated; 0.5 cm raised light brown lesion [...] ORDERABLES Final Resu lt [facility] [address] [place] [address] documented in this encounter Visit Diagnoses Not on filedocumented in this encounter
--- OUTSIDE RECORDS SUMMARY | 2024-06-08 21:19 | XMS_ITS | Encounter Summary ---
Author Organization [facility] Address [address] [place] [address] Care Team Providers Care Traffic Investigator Name Role Phone Unavailable Primary Care Provider Unavailabl e Encounter Details Date Type Department Care Team (Late st Contact Info) Description 06/04/2007 Before PRISM Converted Visit (Maple) [facility] - Maple conversion [address] [place] [address] Edy Montgomery MD [address] [place] [address] DR MIRANDA [address] [place] [phone] Social History Tobacco Use Types Packs/Day Years Used Date Smoking Tobacco: Never Assessed Comments Unknown Sex and Gender Information Value Date Recorded Sex Assigned at Not on file Legal Sex Female 18:41 EST Gender Identity Not on file Sexual Orientation Not on file documented as of this encounter Progress Notes * Edy Montgomery MD - 04/06/20092035 EST [facility] Health Care Service Division of Gynecologic Oncology [facility], Level 4 [address] [place] [address] June 04, 2007 Kath Gardner NP [facility] [address] [place] [address] Dear Ms. Gardner: I had the pleasure of seeing Erika Harkins back at the SUPERVISOR FERTILIZER/Oncology office for a followup visit. I had [...] Montgomery MD 06/06/2007 15:32 Edy Montgomery MD Gun Tester, Division of SUPERVISOR FERTILIZER/Oncology - Edy Montgomery MD - dis Job ID: [id number] Doc ID: [id number] cc: BRIANA Méndez MD Emmanuel Soultanakis, MD - dis Job ID: [id number] Doc ID: [id number] cc: BRIANA Méndez MD documented in this encounter Plan of Treatment Not on file documented as of this encounter Visit Diagnoses Not on filedocumented in this encounter
--- OUTSIDE RECORDS SUMMARY | 2024-06-08 21:19 | XMS_ITS | Encounter Summary ---
Author Organization [facility] Address [address] [place] [address] Care Team Providers Care Oil Field Roustabout Name Role Phone Carolin Denson MD Primary Care Provider [phone] Encounter Details Date Type Department Care Team (Late st Contact Info) Description 06/10/2007 Results Only [facility] OBGYN Services - [address] [address] Leobardo Montgomery MD [address] [place] [address] DR MIRANDA [address] [place] [phone] Social History Tobacco Use Types Packs/Day [...] ? ERIKA SANCHEZ ? Accession #: ? [id number] : ? 1955 (Age: 51) ??F ?Collect [...] ORDERABLES F inal Result [facility] [address] [place] [address] * SURGICAL PATHOLOGY (06/10/2007 0:00 EST) Pathology Report: SURGICAL PATHOLOGY REPORT Reports generated via electronic interface contain original data; however they are lacking the format of the original report. Caution should be taken when reading/interpretin g unformatted reports. Name: ? ERIKA SANCHEZ ? Accession #: ? [id number] ? : ? 1955 (Age: 51) ??F ? Collect Date: ? 06/10/2007 ? Location: ? [facility] ? Receive Date: ? 06/10/2007 ? Provider: LEOBARDO MONTGOMERY MD Copy to: CAROLIN NAVAS ACCOUNT AUDITOR ? Final Pathologic Diagnosis: A. ?Fallopian tube [...] 0.5 cm white-lorenzo, firm, cauliflower-like nodule. ??A construction representative sections of the lorenzo-yellow external nodule along with the cauliflower-like lesion is submitted for frozen section (FS1) with the interpretation rendered as above. ??The remainder of the ovarian parenchyma is lorenzo-white. ??A discrete fragment of fallopian tube is not identified, however, per the surgeon, the patient has had a previous partial salpingectomy. Visual Training Aide sections to include 75% of the ovary are submitted as follows BLOCK ESTEVEZ A1 ?Frozen section control A2 ?Ovary to include central cyst wall and remainder of cauliflower-like lesion A3, A4 ?Visual Training Aide sections of ovary to include serosa Received fresh labelled Torin and left ovary is a 3 gram, 2.3 x 1.7 x 0.7 cm ovary with a lorenzo-white lobulated serosa. ??Several lorenzo-white firm, serosal nodules ranging from 0.3 to 0.9 cm in greatest dimension are identified. ??Two construction representative sections to include the nodules are submitted for frozen section (FS2) with the interpretation rendered as above. ??The ovary is entirely submitted as: BLOCK ESTEVEZ B1 ?B1 (FS2) control B2, B3 ?Ovary with serosal nodules (Scott Baird)/mpl End of Report [facility] 06/10/2007 06/10/2007 16: 07 EST us Leobardo Montgomery MD PATHOLOGY ORDERABLES F inal Result [facility] [address] [place] [address] documented in this encounter Visit Diagnoses Not on filedocumented in this encounter Care Teams Oil Field Roustabout Relationship Specialty Start Date End Date Carolin Denson MD [address] [place] [address] PCP - General 03/01/10 documented as of this encounter
--- OUTSIDE RECORDS SUMMARY | 2024-06-08 21:19 | XMS_ITS | Encounter Summary ---
Author Organization [facility] Address [address] [place] [address] Care Team Providers Care Benefits Technician Name Role Phone Unavailable Primary Care Provider Unavailabl e Encounter Details Date Type Department Care Team (Late st Contact Info) Description 06/18/2007 Before PRISM Converted Visit (Maple) [facility] - Maple conversion [address] [place] [address] Edy Montgomery MD [address] [place] [address] DR MIRANDA [address] [place] [phone] Social History Tobacco Use Types Packs/Day [...] Health Care Service Division of Gynecologic Oncology [facility], Level 4 [address] [place] [address] PROGRESS/FOLLOWUP NOTE - 06/18/2007 June 18, 2007 Kath Gardner NP [address] [address] Dear Ms. Gardner: I had the pleasure of seeing Erika Harkins at the DOCTOR OF PODIATRIC MEDICINE-oncology office for a postoperative visit. She, as [...] Montgomery MD 06/27/2007 14:51 Edy Montgomery MD Machine Heel Seat Fitter, Division of DOCTOR OF PODIATRIC MEDICINE/Oncology - Edy Montgomery MD - TRICE Job ID: [id number] Doc ID: [id number] cc: Kath Gardner NP - trice Job ID: [id number] Doc ID: [id number] cc: Kath Gardner NP documented in this encounter Plan of Treatment Not on file documented as of this encounter Visit Diagnoses Not on filedocumented in this encounter
--- OUTSIDE RECORDS SUMMARY | 2024-06-08 21:19 | XMS_ITS | Encounter Summary ---
Author Organization [facility] Address [address] [place] [address] Care Team Providers Care Box Truck Driver Name Role Phone Unavailable Primary Care Provider Unavailabl e Encounter Details Date Type Department Care Team (Late st Contact Info) Description 05/15/2007 6:08 EST - 05/15/2007 11:59 EST Hospital Encounter [address] [address] Librado Lopez MD [address] [place] [address], Level [address] [place] [phone] Discharge Disposition: Auto Discharge Social History Tobacco [...]
--- OUTSIDE RECORDS SUMMARY | 2024-06-08 21:19 | XMS_ITS | Encounter Summary ---
Author Organization [facility] Address [address] [place] [address] Care Team Providers Care Peach Grower Name Role Phone Unavailable Primary Care Provider Unavailabl e Encounter Details Date Type Department Care Team (Late st Contact Info) Description 06/04/2007 Results Only [facility] OBGYN Services - [facility] [address] [place], [place] [address] Edy Montgomery MD [address] [place] [address] DR MIRANDA [address] [place] [phone] Social History Tobacco Use Types Packs/Day [...] ORDER SCARLETT Final Result Performing Organization Address [facility] de Phone Number [facility] [address] [place] [address] * PROTIME (06/04/2007 12:24 EST) Pro Time [...] ORDER SCARLETT Final Result Performing Organization Address [facility] Phone Number [facility] [address] [place] [address] * COMPREHENSIVE METABOLIC PANEL (06/04/2007 12:24 EST) [...] GAS ORDERABLES Final Result Performing Organization Address City/State/[facility] Co de Phone Number [facility] [address] [place] [address] * (ABNORMAL) CBC WITH AUTO DIFF - ONCOLOGY USE ONLY (06/04/2007 12:24 EST) WBC 7.53 4.0 - 12.4 K/cmm [facility] RBC 4.35 3.86 - 5.04 [...] O RDERABLES Final Result Performing Organization Address [facility] Co de Phone Number [facility] [address] [place] [address] * CA 125 (06/04/2007 12:24 EST) CA 125 13 0 - 35 U/ml [facility] Comment: Serum CA125 concentrations should not be interpreted as absolute evidence for the presence or absence of malignant disease. Assayed utilizing [employer] technology. Values obtained by using different assay methods cannot be used interchangeably. 06/04/2007 12:2 4 EST 06/04/2007 12:59 EST Edy Montgomery MD CHEMISTRY & BLOOD GAS ORDERABLES Final Result Performing Organization Address [facility] Co de Phone Number [facility] [address] [place] [address] documented in this encounter Visit Diagnoses Not on filedocumented in this encounter
--- OUTSIDE RECORDS SUMMARY | 2024-06-08 21:19 | XMS_ITS | Encounter Summary ---
Author Organization [facility] Address [address] [place] [address] Care Team Providers Care Operating Room Rn Name Role Phone Yovanny Browning MD Primary Care Provider [phone] Encounter Details Date Type Department Care Team (Late st Contact Info) Description 01/02/2014 Results Only [facility] [phone] Isaías Steve PA-C [address] [place] [address] Social History Tobacco Use Types [...] ? ERIKA SANCHEZ ? Accession #: ? [id number] ? : ? 1955 (Age: 58) ??F [...] moderate amount of cytoplasm. ??The melanocytes show clearance coordinator maturation. ??(Dr. Pope)/n Document reviewed and electronically [...] PA-C PATHOLOGY ORDERABLES Tawana clemens Result [facility] [address] [place] [address] documented in this encounter Visit Diagnoses Not on filedocumented in this encounter Care Teams Operating Room Rn Relationship Specialty Start Date End Date Yovanny Browning MD [address] [place] [address] PCP - General 03/01/10 documented as of this encounter
--- OUTSIDE RECORDS SUMMARY | 2024-06-08 21:19 | XMS_ITS | Encounter Summary ---
Author Organization [facility] Address [address] [place] [address] Care Team Providers Care Transfer Iron Operator Name Role Phone Unavailable Primary Care Provider Unavailabl e Encounter Details Date Type Department Care Team (Latest Contact Info) Description 06/04/2007 10:10 EST - 06/04/2007 11:59 EST Hospital Encounter [facility] [address] [place] [address] Edy Montgomery MD [address] [place] [address] DR MIRANDA [address] [place] [phone] Discharge Disposition: Auto Discharge Social History Tobacco [...] Procedure Name Priority Date/Time Associated Diagnosis Comments WRITING TUTOR US PELVIS TRANSVAGINAL 06/04/2007 11:39 EST documented in this encounter Results * WRITING TUTOR US PELVIS TRANSVAGINAL (06/04/2007 11:39 EST) Anatomical [...] T 06/05/07 /altagracia Edy Montgomery MD G WRITING TUTOR ORDERABLES Final Result documented in this encounter Visit Diagnoses Not on filedocumented in this encounter
--- OUTSIDE RECORDS SUMMARY | 2024-06-08 21:19 | XMS_ITS | Encounter Summary ---
Author Organization [facility] Address [address] [place] [address] Care Team Providers Care Nursing Education Specialist Name Role Phone Unavailable Primary Care Provider Unavailabl e Encounter Details Date Type Department Care Team (Late st Contact Info) Description 06/25/2009 Abstract [facility] OBGYN Services - [facility] [address] [place], [place] [phone] Unknown, Provider, Social History Tobacco Use Types [...]
--- OUTSIDE RECORDS SUMMARY | 2024-06-08 21:19 | XMS_ITS | Encounter Summary ---
Author Organization [facility] Address [address] [place] [address] Care Team Providers Care Program Review Director Name Role Phone Unavailable Primary Care Provider Unavailabl e Encounter Details Date Type Department Care Team (Late st Contact Info) Description 06/18/2007 9:45 EST Hospital Encounter [facility] [address] [place] [address] Edy Montgomery MD [address] [place] [address] DR MIRANDA [address] [place] [phone] Social History Tobacco Use Types Packs/Day [...] ERIKA SANCHEZ M ? Accession #: ? [id number] ? : ? 1955 (Age: 52) ??F ? Collect Date: ? 07/08/2008 ? Location: ? [facility] ? Receive Date: ? 07/08/2008 ? Provider: SAMINA GARRISON MD ? Copy to: OTIS G TANEY PRINCIPAL CLOUD ARCHITECT ? Final Pathologic Diagnosis: ? Uterus, hysterectomy: [...] and the squamocolumnar junction is discernible. ? Leg Assembler sections of the specimen are submitted as [...] Final Resu lt [facility] [address] [place] [address] * CYTOPATHOLOGY (04/13/2008 0:00 EST) Pathology Report: CYTOPATHOLOGY REPORT ? Reports generated via electronic interface contain original data; ? however they are lacking the format of the original report. ? Caution should be taken when reading/interpreti ng unformatted reports. ? Name: ? ERIKA SANCHEZ ? Accession #: ? [id number] ? : ? 1955 (Age: 52) ??F ?Collect Date: ? 04/13/2008 ? Location: ? [facility] ? Receive Date: ? 04/15/2008 ? Provider: ?KATH NAVAS PRINCIPAL CLOUD ARCHITECT ? Copy to: ? Specimen/Source: ?Pap Test, [...] [facility] 04/13/2008 04/15/2008 us Kath Navas PRINCIPAL CLOUD ARCHITECT PATHOLOGY ORDERABLES Final Res ult [facility] [address] [place] [address] documented in this encounter Visit Diagnoses Not on filedocumented in this encounter
[2024-06-09] VITALS (17 sets, daily range): BP systolic 105–171; BP diastolic 59–91; PULSE 67–136; RESP 12–22; TEMP 35.7–36.9; O2SAT 96–99; BMI 18.8
[2024-06-09] MEDS: Lactated Ringers 1,000 ML 100 ML IV ×2 (01:54→15:28)
[2024-06-09] MEDS: Ondansetron 4 MG/2 ML VIAL IVP ×2 (02:39→08:37)
[2024-06-09] MEDS: LORazepam 0.5 MG TAB PO ×2 (02:51→13:51)
[2024-06-09 06:41] LABS: Anion Gap 7.9 mmol/L (3-11); BUN 12 mg/dL (7-18); CO2 27.1 mmol/L (21.0-32.0); CREATININE 0.9 mg/dL (0.55-1.02); Calcium 8.9 mg/dL (8.5-10.1); Chloride 106 mmol/L (98-107); Estimated GFR 70.07 (mL/min/1.73m2); Glucose 106 mg/dL (74-106); Potassium 3.9 mmol/L (3.5-5.1); Sodium 141 mmol/L (136-145)
[2024-06-09] MEDS: ACETAMINOPHEN 650 MG/65 ML BAG 260 MG IVPB ×2 (08:37→13:51)
[2024-06-09] MEDS: Normal Saline Flush 10 ML SYR IVP ×2 (08:39→15:26)
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
--- NOTE | 2024-06-09 11:12 | PHA.REVIEW2 ---
Pharmacy Admission Review Admission Clinical Review Admission Pharmacy Review: Dehydration (Acute) gabapentin (From Neurontin) Allergy (Unknown, Verified 06/08/24 14:09) Unknown Iodinated Contrast Media Allergy (Unknown, Verified 06/08/24 14:09) Unknown sertraline Adverse Reaction (Severe, Verified 06/08/24 14:09) suicidal thougths Penicillins Adverse Reaction (Mild, Verified 06/08/24 14:09) Anaphylaxis duloxetine HCl (From Cymbalta) Adverse Reaction (Unknown, Verified 06/08/24 14:09) Unknown sulfamethoxazole (From Bactrim) Adverse Reaction (Unknown, Verified 06/08/24 14:09) Unknown trimethoprim (From Bactrim) Adverse Reaction (Unknown, Verified 06/08/24 14:09) Unknown Resuscitation Status Full Code Height 5 ft 2.5 in Weight 47.4 kg Comments Comments/Follow Ups: Watch for addition of DVT prophylaxis - ask provider about it if none ordered following colonoscopy Pharmacy Admission Review Renal Dosing Renal Dosing: BUN 12 mg/dL (7-18) 06/09/24 06:06 Creatinine 0.9 mg/dL (0.55-1.02) 06/09/24 06:06 Medications needing adjustments: Reviewed (CrCl 40.8 mL/min, BUN decreased from 21) List of meds needing interventions: Current medications are okay Anticoagulation Anticoagulation: Hgb 16.1 g/dL (11.2-15.7) H 06/08/24 15:06 Hct 45.8 % (36.0-46.0) 06/08/24 15:06 Plt Count 422 10^3/uL (130-400) H 06/08/24 15:06 Creatinine 0.9 mg/dL (0.55-1.02) 06/09/24 06:06 DVT Prophylaxis: Reviewed (None at this time, colonoscopy scheduled for today at 1100) Relevant Labs Relevant Labs: Sodium 141 mmol/L (136-145) 06/09/24 06:06 Potassium 3.9 mmol/L (3.5-5.1) 06/09/24 06:06 Chloride 106 mmol/L (98-107) 06/09/24 06:06 Magnesium 1.9 mg/dL (1.8-2.4) 06/08/24 15:06 Electrolytes, C-Reactive P, ESR: Reviewed Cardiac Review Cardiac Review: Troponin I Cancelled 06/08/24 17:33 BP, HR, EF%: Reviewed (BP and HR WNL) QTc Review QTc: Reviewed (451 from 06/08/24) IV to PO Switch IV Medications: Reviewed (acetaminophen and ondansetron - NPO for colonoscopy today) Home Meds Home Med List reviewed: Reviewed Relevent Home Meds Not ordered & why?: bisacodyl (colonoscopy prep), vitamin D2 (weekly), Aleve PM (PRN) and Miralax (colonoscopy prep) Current Meds Current Medication Order Review: Intervened Comments: Added 2nd PRN to APAP, lorazepam and ondansetron orders per pharmacy protocol Changed IV ED access Comments Comments/Follow Ups: Watch for addition of DVT prophylaxis - ask provider about it if none ordered following colonoscopy
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
--- NOTE | 2024-06-09 13:30 | W.ANESPOSTOP ---
Postoperative Evaluation Date, Time and Location Date Performed: 06/09/24 Time Performed: 13:30 Patient Location: PACU Vital Signs Most Recent Imported Vital Signs: Most Recent Vital Signs Temp Pulse Resp BP Pulse Ox 36.7 C 74 12 160/76 H 98 06/09/24 13:19 06/09/24 13:16 06/09/24 13:16 06/09/24 13:16 06/09/24 13:16 Pain Score Most Recent Pain Score: Most Recent Pain Score Pain Level 2 06/09/24 13:19 Assessment Mental Status: Awake (Alert & Oriented to Patient Baseline) Airway and Respiratory Function: Patent airway with normal (patient baseline) respiratory exam Cardiovascular Function: Hemodynamically Stable Hydration Status: Adequately Hydrated Nausea & Vomiting: No Nausea or Vomiting Pain: Pain is tolerable per patient Peripheral Nerve Block: Patient did not receive a nerve block
--- NOTE | 2024-06-09 13:35 | W.COLOREPORT ---
Date of service: 06/09/24 Time of Service: 13:35 Colonoscopy Report Date of procedure: 06/09/24 Pre-op diagnosis general: Abdominal pain, overdue screening colonoscopy Procedure: Colonoscopy with biopsies Surgeon: Eric Yang Anesthesia Type: General:No Airway Estimated blood loss (mL): 10 Pathology: other (Random biopsies of colon, random biopsies of rectum) Complications: None Disposition: same day Indications: Erika is a 68-year-old woman who is overdue for screening colonoscopy. Over the past several weeks she has described increasing waxing and waning left lower quadrant abdominal pain. Prep: Miralax/Dulcolax Procedure Start Time: 12:45 Procedure End Time: 13:00 Retraction Time: 10 Findings: Normal-appearing colon and rectum Procedure Description: After the induction of anesthesia, and with the patient in left lateral decubitus position, I began by performing an external anorectal exam.? Perineum and skin were normal, as was the anal verge.? There are some perianal skin tags consistent with old hemorrhoids.? Next, I performed a digital rectal exam.? I did not appreciate any abnormal findings.? Next, I advanced a colonoscope into the rectal vault.? I performed retroflexion.? This appeared normal.? Using insufflation, I then advanced the colonoscope beyond the rectal folds and into the sigmoid colon before advancing towards the cecum.? The scope was noted to be in the cecum by identification of the ileocecal valve and appendiceal orifice.? Mucosa was normal, pink, and healthy appearing. I then began withdrawing the colonoscope using repeated irrigation as necessary for full evaluation of the colonic mucosa. Given the uncertainty of her abdominal pain, I did perform some nondirected cold forceps biopsies all along the length of the colon. I did notice some occasional sigmoid diverticula. Otherwise, the mucosa through this region appeared normal and healthy appearing. Once the scope was withdrawn to the level of the rectum, great care was taken to examine portions of the rectal folds.? Again, I did some nondirected cold forceps biopsies as product support sales representative samples of the rectum. All of the mucosa, however from the cecum through the anus had a normal appearance in terms of structure, architecture, and vascular pattern. I saw no signs of ulceration or inflammation. There is no evidence of any Crohn's disease or ulcerative colitis. Finally, the scope was withdrawn and the patient was brought to the same-day surgery recovery unit as the anesthetic wore off. ?The findings and instructions were shared with the patient prior to discharge. [place] Bowel Prep [place] Bowel Prep Right Colon: 3 Left Colon: 3 Transverse Colon: 3 Total Score: 9
--- NOTE | 2024-06-09 15:33 | PGE_ITS ---
Date of Service Date of service: 06/09/24 Time of Service: 15:33 Assessment and Plan Assessment and plan (1) Abdominal pain of unknown cause: Status: Acute Assessment and plan: Clinically, this all seems most consistent with some dehydration associated with the bowel prep itself, although I do not know why that would change any of the character of her abdominal pain. Ischemic colitis I suppose could also be within the differential here, if in fact she was hypovolemic during the course of the prep itself. Although again, I would expect some radiographic evidence of that on the CT scan (albeit it was performed without contrast yesterday). Regardless, I think colonoscopy at this point is the most reasonable course of action. 06.09.24 After the induction of anesthesia, and with the patient in left lateral decubitus position, I began by performing an external anorectal exam.? Perineum and skin were normal, as was the anal verge.? There are some perianal skin tags consistent with old hemorrhoids.? Next, I performed a digital rectal exam.? I did not appreciate any abnormal findings.? Next, I advanced a colonoscope into the rectal vault.? I performed retroflexion.? This appeared normal.? Using insufflation, I then advanced the colonoscope beyond the rectal folds and into the sigmoid colon before advancing towards the cecum.? The scope was noted to be in the cecum by identification of the ileocecal valve and appendiceal orifice.? Mucosa was normal, pink, and healthy appearing. I then began withdrawing the colonoscope using repeated irrigation as necessary for full evaluation of the colonic mucosa. Given the uncertainty of her abdominal pain, I did perform some nondirected cold forceps biopsies all along the length of the colon. I did no teresa some occasional sigmoid diverticula. Otherwise, the mucosa through this region appeared normal and healthy appearing. Once the scope was withdrawn to the level of the rectum, great care was taken to examine portions of the rectal folds.? Again, I did some nondirected cold forceps biopsies as personal financial representative samples of the rectum. All of the mucosa, however from the cecum through the anus had a normal appearance in terms of structure, architecture, and vascular pattern. I saw no signs of ulceration or inflammation. There is no evidence of any Crohn's disease or ulcerative colitis. Finally, the scope was withdrawn and the patient was brought to the same-day surgery recovery unit as the anesthetic wore off. ?The findings and instructions were shared with the patient prior to discharge. The question now is what is causing her LLQ pain. Some consideration to meralgia paresthetica but does seem a bit high for this. Potential adhesions from prior abdominal surgeries as well. 1. No evidence of nephrolithiasis or obstructive uropathy. 2. Colonic diverticulosis without evidence of acute diverticulitis. 3. Fluid seen throughout the colon which may represent a diarrheal illness. The patient reportedly is undergoing a colonoscopy preparation which may also give this appearance. Will order stool studies to rule out infectious processes Subjective Subjective Interval history since last seen: Pt seen and examined in the am prior to her colonoscopy. Colonoscopy results reviewed (reassuring). Pt still with nausea and decreased appetite. POC d/w pt and SO as well as with bedside nurse during MDR Exam Narrative Exam Narrative: 127/67, 77, 36.9, 18, 99% RA. HEENT unremarkable; neck supple; lungs clear; heart RRR; abdomen +BS. soft, mild LLQ tenderness w/o rebound; rectal deferred; extremities w/o edema; neuro Ox3, lucid, moves all 4s GI Other: Her abdomen is soft and nondistended. She has bowel sounds. She is tender in the left lower quadrant without any appreciable masses or hernias. Objective Last Vital Signs Temp 36.9 C 06/09/24 15:16 Pulse 76 06/09/24 15:16 Resp 20 06/09/24 15:16 BP 154/91 H 06/09/24 15:16 Pulse Ox 96 06/09/24 15:16 Laboratory Results - last 24 hr 06/08/24 06/08/24 06/08/24 15:06 16:31 16:55 VBG Lactate 2.5 H* Sodium 138 Potassium 3.9 Chloride 100 Carbon Dioxide 22.3 Anion Gap 15.7 H BUN 21 H Creatinine 1.0 Est GFR (CKD-EPI 2020) 61.75 Glucose 149 H Calcium 10.0 Magnesium 1.9 Total Bilirubin 0.55 AST 12 L ALT 14 Alkaline Phosphatase 105 Troponin I 9 11 Total Protein 8.5 H Albumin 4.4 Urine Color Yellow Urine Clarity Clear Urine pH 6.5 Ur Specific [place] 1.020 Urine Protein Negative Urine Ketones >=160 H Urine Blood Small H Urine Nitrite Negative Urine Bilirubin Negative Urine Urobilinogen 0.2 Ur Leukocyte Esterase Trace H Urine RBC 3-5 H Urine WBC 3-5 Ur Epithelial Cells Few Urine Crystals Negative Urine Bacteria Rare Urine Casts Negative Urine Mucus Moderate Ur Culture Indicated? No Urine Glucose Negative 06/08/24 06/09/24 17:33 06:06 VBG Lactate Sodium 141 Potassium 3.9 Chloride 106 Carbon Dioxide 27.1 Anion Gap 7.9 BUN 12 Creatinine 0.9 Est GFR (CKD-EPI 2020) 70.07 Glucose 106 Calcium 8.9 Magnesium Total Bilirubin AST ALT Alkaline Phosphatase Troponin I Cancelled Total Protein Albumin Urine Color Urine Clarity Urine pH Ur Specific [place] Urine Protein Urine Ketones Urine Blood Urine Nitrite Urine Bilirubin Urine Urobilinogen Ur Leukocyte Esterase Urine RBC Urine WBC Ur Epithelial Cells Urine Crystals Urine Bacteria Urine Casts Urine Mucus Ur Culture Indicated? Urine Glucose Time Spent with Patient Time Spent with Patient: 25-34 minutes Time was spent: preparing to see the patient(eg.review tests), ordering medications,tests, procedures, referring, communicating with other health personal carer, indepentently interpreting results, counseling the patient and care coordination
== END 2024-06-09 19:41 | disposition home or self-care (01) ==
LOC: ER 19:33 → MS 06-09 09:47
PROVIDERS: Surgery; Admitting Provider General Practice; Emergency Provider Emergency Medicine; PCP Physician Assistant Medical; Visit Provider General Practice
PROC: 0DJD8ZZ Inspection of Lower Intestinal Tract, Via Natural or Artificial Opening Endoscopic (ICD-10-PCS; CPT 45378; principal; 2024-06-09 12:45)
DX: E86.0 Dehydration (principal); K64.4 Residual hemorrhoidal skin tags; K57.30 Diverticulosis of large intestine without perforation or abscess without bleeding; R10.32 Left lower quadrant pain; E87.20 Acidosis, unspecified; R11.2 Nausea with vomiting, unspecified; I10 Essential (primary) hypertension; G89.4 Chronic pain syndrome; E03.9 Hypothyroidism, unspecified; G62.9 Polyneuropathy, unspecified; E78.5 Hyperlipidemia, unspecified; M94.1 Relapsing polychondritis; F41.1 Generalized anxiety disorder; F43.10 Post-traumatic stress disorder, unspecified
CPT/HCPCS: 45380; 00123; 36415; 80048; 80053; 83690; 88305; 93005; 96361; 96365; 96366; 96372; 96374; 96376; 99222; 99285; 74176; 81003; 81015; 83605; 83735; 84484; 85025; 93010; 99239; J0131; J2405; J2704

== ENCOUNTER 2024-06-14 05:08 | Emergency (ER) | payer SELFPAY ==
[2024-06-14] VITALS (44 sets, daily range): BP systolic 87–243; BP diastolic 45–158; PULSE 58–82; RESP 8–31; O2SAT 96–100
--- NOTE | 2024-06-14 05:00 | RT.EKG_ITS ---
APPROVED REPORT Exam: Resting ECG Reason for Exam: chest pain Patient Location: E HR:68 bpm ECG Measurements Heart Rate 68 AXIS WV 134 P 72 QRSd 82 QRS 67 QT 427 T 40 QTc 453 Conclusion Sinus rhythm...normal P axis, V-rate 60- 99 Probable left atrial enlargement...P >50mS, <-0.10mV V1 Physician: t wave inversion and minimal depression in V1 and V2
[2024-06-14] MEDS: nitroGLYcerin 0.4 MG TAB (05:15)
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
[2024-06-14] MEDS: Aspirin 81 MG CHEW 324 MG CH (05:22)
[2024-06-14] MEDS: nitroGLYcerin 0.4 MG TAB SL (05:29)
[2024-06-14] MEDS: Ondansetron 4 MG/2 ML VIAL (05:29)
[2024-06-14 05:30] LABS: Abs Immature Grans 0.03 10^3/uL (0.0-0.06); Absolute Basophil Count 0.11 10^3/uL (0.0-0.2); Absolute Eosinophil Count 0.32 10^3/uL (0.0-0.7); Absolute Lymphocyte Count 3.83 10^3/uL (1.2-3.4); Absolute Monocyte Count 0.57 10^3/uL (0.1-0.8); Absolute Neutrophil Count 4.84 10^3/uL (1.2-6.7); Basophils % 1.1 %; Eosinophils % 3.3 %; HCT 44.6 % (36.0-46.0); HGB 14.8 g/dL (11.2-15.7); Immature Grans % 0.3 %; Lymphocytes % 39.5 %; MCH 31.6 pg (27.0-33.0); MCHC 33.2 % (32.0-36.0); MCV 95 fL (80-95); MPV 10.1 fL (8.0-11.0); Monocytes % 5.9 %; Neutrophils % 49.9 %; Platelet Count 372 10^3/uL (130-400); RBC 4.68 10^6/uL (3.93-5.22); RDW 12.5 % (11.7-14.6); RDW-SD 43.8 fL
--- NOTE | 2024-06-14 05:32 | DI.RAD_ITS ---
Exam(s) XR PORTABLE CHEST AP EXAM: XR PORTABLE CHEST AP CLINICAL HISTORY: central chest pain TECHNIQUE: 2D digital imaging was performed. COMPARISON: CR CHEST 2 VIEWS PA,LAT from 10/21/2015 FINDINGS: LUNGS: Clear. No pleural abnormality seen. HEART: Normal size. AORTA: Tortuous. BONES: Unremarkable for age. Soft tissues: Unremarkable. IMPRESSION: No acute findings. DATA REPOSITORY: RADIATION DOSE DELIVERED:
[2024-06-14 05:39] LABS: Prothrombin Time 9.7 sec (9.1-11.1)
[2024-06-14] MEDS: nitroGLYcerin in D5W 50 MG/250 ML BTL 15 MG IV (05:42)
[2024-06-14] MEDS: ACETAMINOPHEN 1,000 MG/100 ML BAG 400 MG IVPB (05:49)
[2024-06-14 05:50] LABS: ALT 14 U/L (14-59); AST 6 U/L (15-37); Albumin 3.8 g/dL (3.4-5.0); Alkaline Phosphatase 98 U/L (46-116); Anion Gap 12.8 mmol/L (3-11); BUN 12 mg/dL (7-18); CO2 26.2 mmol/L (21.0-32.0); Chloride 105 mmol/L (98-107); Estimated GFR 61.75 (mL/min/1.73m2); Glucose 130 mg/dL (74-106); Lipase 57 U/L (<78); NT-proBNP 74 pg/mL (<300); Potassium 3.1 mmol/L (3.5-5.1); Sodium 144 mmol/L (136-145); Total Protein 7.7 g/dL (6.4-8.2)
[2024-06-14 05:53] LABS: Troponin I 58 ng/L (<or=51)
[2024-06-14 05:56] LABS: Calcium 9.1 mg/dL (8.5-10.1)
[2024-06-14] MEDS: Heparin in 0.45% NaCl 25,000 UNIT/250 ML BAG 5.5 UNIT IVINF (05:58)
--- NOTE | 2024-06-14 06:15 | RT.EKG_ITS ---
APPROVED REPORT Exam: Resting ECG Reason for Exam: chest pain Patient Location: E HR:68 bpm ECG Measurements Heart Rate 68 AXIS CA 124 P 56 QRSd 84 QRS 54 QT 452 T 40 QTc 481 Conclusion Sinus rhythm...normal P axis, V-rate 60- 99 Physician: acute ST changes in V1-V3
[2024-06-14] MEDS: Normal Saline 500 ML IV (06:19)
[2024-06-14] MEDS: Atorvastatin 40 MG TAB 80 MG PO (06:23)
[2024-06-14] MEDS: fentaNYL 100 MCG/2 ML VIAL (06:26)
[2024-06-14 06:30] LABS: Troponin I 237 ng/L (<or=51)
[2024-06-14] MEDS: fentaNYL 100 MCG/2 ML VIAL 25 MCG IVP (06:38)
--- NOTE | 2024-06-14 07:01 | DI.VRAD_ITS ---
PROCEDURE INFORMATION: Exam: XR Chest Exam date and time: 06/14/2024 5:30 AM Age: 68 years old Clinical indication: Other: Central chest pain TECHNIQUE: Imaging protocol: Radiologic exam of the chest. Views: 1 view. COMPARISON: CT ABDOMEN PELVIS WO 06/08/2024 3:33 PM FINDINGS: Lungs: Unremarkable. No consolidation. Pleural spaces: Unremarkable. No pleural effusion. No pneumothorax. Heart/Mediastinum: Unremarkable. No cardiomegaly. Bones/joints: Unremarkable. IMPRESSION: No acute findings. Dictated and Authenticated by: Danny Rao MD. Ordering:JACK Hughes MD
== END 2024-06-14 07:26 | disposition short-term general hospital (02) ==
PROVIDERS: Emergency Provider Student in an Organized Health Care Education/Training Program; PCP Physician Assistant Medical
DX: I21.4 Non-ST elevation (NSTEMI) myocardial infarction (principal); I10 Essential (primary) hypertension; E03.9 Hypothyroidism, unspecified; E78.5 Hyperlipidemia, unspecified; F17.210 Nicotine dependence, cigarettes, uncomplicated; Z82.49 Family history of ischemic heart disease and other diseases of the circulatory system
CPT/HCPCS: 80053; 83690; 93005; 93308; 96365; 96367; 96375; 99285; 71045; 83880; 84484; 85025; 85610; 85730; 93010; J0131; J1644; J2305; J2405; J3010

== ENCOUNTER 2024-06-25 11:31 | Outpatient (RCR) | payer MEDICARE, SELFPAY | END 2024-06-27 23:59 | disposition home or self-care (01) | LOC: CR 11:31 | PROVIDERS: PCP Physician Assistant Medical; Visit Provider Internal Medicine Cardiovascular Disease ==

== ENCOUNTER 2024-07-07 10:30 | Outpatient (RCR) | payer SELFPAY ==
--- NOTE | 2024-07-07 10:00 | RT.EKG_ITS ---
APPROVED REPORT Exam: Resting ECG Reason for Exam: CR Intake Appointment - Baseline EKG Patient Location: O HR:73 bpm ECG Measurements Heart Rate 73 AXIS [place] 134 P 79 QRSd 80 QRS 80 QT 407 T 192 QTc 449 Conclusion Sinus rhythm...normal P axis, V-rate 50- 99 Probable left atrial enlargement...P >50mS, <-0.10mV V1 Nonspecific T abnormalities, lateral leads...T <-0.10mV, I aVL V5 V6
== END 2024-07-25 23:59 | disposition home or self-care (01) ==
LOC: CR 10:30
PROVIDERS: PCP Physician Assistant Medical; Visit Provider Internal Medicine Cardiovascular Disease
DX: I21.3 ST elevation (STEMI) myocardial infarction of unspecified site (principal); Z51.89 Encounter for other specified aftercare
CPT/HCPCS: S9472

== ENCOUNTER 2024-07-25 13:19 | Outpatient (RCR) | payer SELFPAY | END 2024-07-25 23:59 | disposition home or self-care (01) | LOC: CR 13:19 | PROVIDERS: PCP Physician Assistant Medical; Visit Provider Internal Medicine Cardiovascular Disease | DX: I21.4 Non-ST elevation (NSTEMI) myocardial infarction (principal); Z51.89 Encounter for other specified aftercare | CPT/HCPCS: S9472 ==

== ENCOUNTER 2024-08-12 13:56 | Outpatient (REF) | payer MEDICARE, SELFPAY ==
[2024-08-12 15:14] LABS: Abs Immature Grans 0.03 10^3/uL (0.0-0.06); Absolute Basophil Count 0.07 10^3/uL (0.0-0.2); Absolute Eosinophil Count 0.37 10^3/uL (0.0-0.7); Absolute Lymphocyte Count 2.68 10^3/uL (1.2-3.4); Absolute Monocyte Count 0.55 10^3/uL (0.1-0.8); Absolute Neutrophil Count 5.16 10^3/uL (1.2-6.7); Basophils % 0.8 %; Eosinophils % 4.2 %; HCT 43.1 % (36.0-46.0); HGB 13.7 g/dL (11.2-15.7); Immature Grans % 0.3 %; Lymphocytes % 30.2 %; MCH 31.3 pg (27.0-33.0); MCHC 31.8 % (32.0-36.0); MCV 98 fL (80-95); MPV 11.5 fL (8.0-11.0); Monocytes % 6.2 %; Neutrophils % 58.3 %; Platelet Count 320 10^3/uL (130-400); RBC 4.38 10^6/uL (3.93-5.22); RDW 13.4 % (11.7-14.6); RDW-SD 49.2 fL; WBC 8.86 10^3/uL (4.4-10.8)
[2024-08-12 16:06] LABS: ALT 45 U/L (14-59); AST 22 U/L (15-37); Albumin 3.8 g/dL (3.4-5.0); Alkaline Phosphatase 101 U/L (46-116); Anion Gap 8.2 mmol/L (3-11); BUN 18 mg/dL (7-18); Bilirubin, Total 0.4 mg/dL (0.2-1.0); CO2 28.8 mmol/L (21.0-32.0); CREATININE 0.8 mg/dL (0.55-1.02); Calcium 9.3 mg/dL (8.5-10.1); Chloride 108 mmol/L (98-107); Estimated GFR 80.71 (mL/min/1.73m2); Glucose 104 mg/dL (74-106); Potassium 4.4 mmol/L (3.5-5.1); Sodium 145 mmol/L (136-145); Total Protein 7.1 g/dL (6.4-8.2); Vitamin D 25 Total 18 ng/mL (30-100)
[2024-08-12 16:18] LABS: Creatine Kinase 53 U/L (26-192)
== END 2024-08-12 13:57 | disposition home or self-care (01) ==
LOC: NCHCN 13:56
PROVIDERS: PCP Physician Assistant Medical; Visit Provider Physician Assistant Medical
DX: E55.9 Vitamin D deficiency, unspecified (principal); I25.10 Atherosclerotic heart disease of native coronary artery without angina pectoris
CPT/HCPCS: 80053; 82306; 82550; 83735; 85025

== ENCOUNTER 2024-08-25 13:13 | Outpatient (RCR) | payer SELFPAY | END 2024-08-25 23:59 | disposition home or self-care (01) | LOC: CR 13:13 | PROVIDERS: PCP Physician Assistant Medical; Visit Provider Internal Medicine Cardiovascular Disease | DX: I21.4 Non-ST elevation (NSTEMI) myocardial infarction (principal); Z51.89 Encounter for other specified aftercare | CPT/HCPCS: S9472 ==

== ENCOUNTER 2024-09-19 10:17 | Outpatient (CLI) | payer SELFPAY ==
--- NOTE | 2024-09-19 10:15 | RT.EKG_ITS ---
APPROVED REPORT Exam: Resting ECG Reason for Exam: palpitations post CABG Patient Location: O HR:53 bpm ECG Measurements Heart Rate 53 AXIS DE 135 P 70 QRSd 84 QRS 66 QT 479 T 39 QTc 450 Conclusion Sinus rhythm...normal P axis, V-rate 50- 99 Left atrial enlargement...P, P'>60mS, <-0.15mV V1 Otherwise normal ECG
== END 2024-09-19 10:18 | disposition home or self-care (01) ==
PROVIDERS: PCP Physician Assistant Medical
DX: R00.2 Palpitations (principal); I51.7 Cardiomegaly
CPT/HCPCS: 93005; 93010

== ENCOUNTER 2024-09-24 13:24 | Outpatient (RCR) | payer SELFPAY | END 2024-09-24 23:59 | disposition home or self-care (01) | LOC: CR 13:24 | PROVIDERS: PCP Physician Assistant Medical; Visit Provider Internal Medicine Cardiovascular Disease | DX: I25.10 Atherosclerotic heart disease of native coronary artery without angina pectoris (principal); Z51.89 Encounter for other specified aftercare; Z95.1 Presence of aortocoronary bypass graft; I21.4 Non-ST elevation (NSTEMI) myocardial infarction | CPT/HCPCS: S9472 ==

== ENCOUNTER 2024-10-08 14:58 | Outpatient (RCR) | payer SELFPAY | END 2024-10-25 23:59 | disposition home or self-care (01) | LOC: CR 14:58 | PROVIDERS: PCP Physician Assistant Medical; Visit Provider Internal Medicine Cardiovascular Disease | DX: I21.4 Non-ST elevation (NSTEMI) myocardial infarction (principal); I25.810 Atherosclerosis of coronary artery bypass graft(s) without angina pectoris; Z51.89 Encounter for other specified aftercare | CPT/HCPCS: S9472 ==

== ENCOUNTER 2024-10-23 10:52 | Outpatient (RCR) | payer SELFPAY ==
[2024-10-09 13:42] VITALS: BP 139/81; PULSE 64
[2024-10-14 13:13] VITALS: BP 131/82; PULSE 77
[2024-10-16 11:19] VITALS: BP 119/79; PULSE 69
[2024-10-21 12:47] VITALS: BP 143/77; PULSE 69
[2024-10-23 13:50] VITALS: BP 134/77; PULSE 67
== END 2024-10-25 23:59 | disposition home or self-care (01) ==
LOC: CR 10:52
PROVIDERS: PCP Physician Assistant Medical; Visit Provider Internal Medicine Cardiovascular Disease
DX: R69 Illness, unspecified (principal)

== ENCOUNTER 2024-10-30 10:59 | Emergency (ER) | payer SELFPAY ==
[2024-10-30] VITALS (30 sets, daily range): BP systolic 114–131; BP diastolic 78–80; PULSE 54–66; RESP 14–16; TEMP 36.6; O2SAT 96–100
--- NOTE | 2024-10-30 11:00 | RT.EKG_ITS ---
APPROVED REPORT Exam: Resting ECG Reason for Exam: Chest Pain Patient Location: E HR:58 bpm ECG Measurements Heart Rate 58 AXIS NC 139 P 70 QRSd 79 QRS 66 QT 422 T 46 QTc 415 Conclusion Sinus bradycardia...rate< 60 Probable left atrial enlargement...P >50mS, <-0.10mV V1
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
[2024-10-30 12:04] LABS: Abs Immature Grans 0.02 10^3/uL (0.0-0.06); Absolute Basophil Count 0.08 10^3/uL (0.0-0.2); Absolute Eosinophil Count 0.13 10^3/uL (0.0-0.7); Absolute Lymphocyte Count 3.18 10^3/uL (1.2-3.4); Absolute Monocyte Count 0.56 10^3/uL (0.1-0.8); Absolute Neutrophil Count 4.65 10^3/uL (1.2-6.7); Basophils % 0.9 %; Eosinophils % 1.5 %; HCT 43.9 % (36.0-46.0); HGB 14.6 g/dL (11.2-15.7); Immature Grans % 0.2 %; Lymphocytes % 36.9 %; MCHC 33.3 % (32.0-36.0); MCV 93 fL (80-95); MPV 10.3 fL (8.0-11.0); Monocytes % 6.5 %; Platelet Count 319 10^3/uL (130-400); RBC 4.71 10^6/uL (3.93-5.22); RDW 12.5 % (11.7-14.6); RDW-SD 42.8 fL; WBC 8.62 10^3/uL (4.4-10.8)
[2024-10-30 12:16] LABS: Magnesium 1.9 mg/dL (1.8-2.4)
[2024-10-30 12:28] LABS: ALT 53 U/L (14-59); AST 28 U/L (15-37); Albumin 3.8 g/dL (3.4-5.0); Alkaline Phosphatase 92 U/L (46-116); Anion Gap -0.4 mmol/L (3-11); BUN 24 mg/dL (7-18); Bilirubin, Total 0.6 mg/dL (0.2-1.0); CO2 30.4 mmol/L (21.0-32.0); CREATININE 0.8 mg/dL (0.55-1.02); Calcium 9.3 mg/dL (8.5-10.1); Chloride 101 mmol/L (98-107); Estimated GFR 80.71 (mL/min/1.73m2); Glucose 114 mg/dL (74-106); Lipase 34 U/L (<78); Sodium 131 mmol/L (136-145); TSH (W/Ref FT4) 3.24 uIU/mL (0.36-3.74); Total Protein 7.4 g/dL (6.4-8.2); Troponin I 13 ng/L (<or=51)
[2024-10-30 12:29] LABS: D-Dimer 696 ng/mlFEU (<500)
[2024-10-30 13:16] LABS: Troponin I 13 ng/L (<or=51)
--- NOTE | 2024-10-30 14:02 | DI.RAD_ITS ---
Exam(s) XR CHEST 2V PA LATERAL EXAM: XR CHEST 2V PA LATERAL CLINICAL HISTORY: chest pain. TECHNIQUE: 2D digital imaging was performed. COMPARISON: Prior chest x-ray 06/14/2024 FINDINGS: 2 views: Sternotomy wires now evident. Heart size remains normal. Mediastinum not widened. Lungs are clear. No infiltrates nor pleural effusions. No pulmonary edema. IMPRESSION: No acute pulmonary findings.Interval sternotomy when compared to chest x-ray 06/14/2024. DATA REPOSITORY: RADIATION DOSE DELIVERED:
[2024-10-30] MEDS: nitroGLYcerin 0.4 MG TAB SL (15:30)
== END 2024-10-30 15:43 | disposition left against medical advice (07) ==
PROVIDERS: Emergency Provider Physician Assistant; PCP Physician Assistant Medical
DX: R07.9 Chest pain, unspecified (principal); R06.02 Shortness of breath; I10 Essential (primary) hypertension; E78.5 Hyperlipidemia, unspecified; E03.9 Hypothyroidism, unspecified; Z95.1 Presence of aortocoronary bypass graft; Z79.82 Long term (current) use of aspirin; Z53.29 Procedure and treatment not carried out because of patient's decision for other reasons
CPT/HCPCS: 36415; 80053; 83690; 93005; 99285; 71046; 83735; 84443; 84484; 85025; 85379; 93010; 99284

== ENCOUNTER 2024-11-20 11:00 | Outpatient (RCR) | payer SELFPAY ==
[2024-10-26 00:16] VITALS: BP 134/77; PULSE 67
[2024-10-28 11:17] VITALS: BP 122/74; PULSE 62
--- NOTE | 2024-10-30 11:12 | NUR.NOTE ---
Nursing Note: Patient presented to cardiac rehab today and reported she had 2/10 chest squeezing. Reports discomfort was in her left upper chest and noted pain did not radiate to any other location. Denied SOB and all other symptoms. Notes pain started at 0630 this mirning while she was resting in bed reading my book. Patient noted she took one aspirin. Patient notes she she does not have an rx for nitro and thus did not take one. Patient sent to ED for eval. Report given to ZAHRA Wagoner.
[2024-10-30 11:17] VITALS: BP 138/90; PULSE 93; O2SAT 93
[2024-11-04 14:30] VITALS: BP 148/83; PULSE 65
[2024-11-06 11:33] VITALS: BP 118/73; PULSE 61
[2024-11-11 11:28] VITALS: BP 120/78; PULSE 74
[2024-11-13 12:28] VITALS: BP 149/92; PULSE 74
[2024-11-18 14:45] VITALS: BP 112/76; PULSE 82
[2024-11-20 11:16] VITALS: BP 120/72; PULSE 74
== END 2024-11-24 23:59 | disposition home or self-care (01) ==
LOC: CR 11:00
PROVIDERS: PCP Physician Assistant Medical; Visit Provider Internal Medicine Cardiovascular Disease
DX: R69 Illness, unspecified (principal)

== ENCOUNTER 2024-12-25 11:00 | Outpatient (RCR) | payer SELFPAY ==
[2024-11-25 11:14] VITALS: BP 112/77; PULSE 68
[2024-11-27 10:45] VITALS: BP 147/83; PULSE 63; O2SAT 98
[2024-12-02 13:39] VITALS: BP 141/81; PULSE 60
[2024-12-04 13:12] VITALS: BP 134/77; PULSE 69
[2024-12-09 11:10] VITALS: BP 114/75; PULSE 74
[2024-12-11 10:55] VITALS: BP 129/79; PULSE 71; O2SAT 98
[2024-12-16 12:54] VITALS: BP 127/77; PULSE 63
[2024-12-18 11:02] VITALS: BP 129/81; PULSE 66
[2024-12-23 11:16] VITALS: BP 102/68; PULSE 74
[2024-12-25 11:16] VITALS: BP 111/74; PULSE 67
== END 2024-12-25 23:59 | disposition home or self-care (01) ==
LOC: CR 11:00
PROVIDERS: PCP Physician Assistant Medical; Visit Provider Internal Medicine Cardiovascular Disease
DX: R69 Illness, unspecified (principal)

== ENCOUNTER 2025-01-22 11:00 | Outpatient (RCR) | payer SELFPAY ==
[2024-12-26 00:11] VITALS: BP 111/74; PULSE 67
[2024-12-30 13:54] VITALS: BP 143/81; PULSE 65
[2025-01-01 11:23] VITALS: BP 121/75; PULSE 60; O2SAT 98
[2025-01-06 11:00] VITALS: BP 138/82; PULSE 74
[2025-01-08 11:14] VITALS: BP 132/80; PULSE 66
[2025-01-13 11:19] VITALS: BP 133/80; PULSE 65
[2025-01-15 11:20] VITALS: BP 132/81; PULSE 62
[2025-01-20 11:20] VITALS: BP 136/84; PULSE 67
[2025-01-22 10:46] VITALS: BP 127/84; PULSE 64; O2SAT 94
== END 2025-01-25 23:59 | disposition home or self-care (01) ==
LOC: CR 11:00
PROVIDERS: PCP Physician Assistant Medical; Visit Provider Internal Medicine Cardiovascular Disease
DX: R69 Illness, unspecified (principal)

== ENCOUNTER 2025-01-28 02:12 | Emergency (ER) | payer SELFPAY ==
[2025-01-28] VITALS (32 sets, daily range): BP systolic 139–186; BP diastolic 70–126; PULSE 63–85; RESP 8–29; TEMP 36.7; O2SAT 95–100
--- NOTE | 2025-01-28 02:00 | RT.EKG_ITS ---
APPROVED REPORT Exam: Resting ECG Reason for Exam: Chest pain Patient Location: E HR:90 bpm ECG Measurements Heart Rate 90 AXIS MN 136 P 54 QRSd 85 QRS 64 QT 411 T 36 QTc 504 Conclusion Sinus rhythm...normal P axis, V-rate 60- 99 Left atrial enlargement...P, P'>60mS, <-0.15mV V1 Prolonged QT interval...QTc >500mS PHysician: Notable artifact, no STEMI
--- NOTE | 2025-01-28 02:15 | DI.RAD_ITS ---
Exam(s) XR PORTABLE CHEST AP EXAM: XR PORTABLE CHEST AP CLINICAL HISTORY: SOB, hx CAD TECHNIQUE: 2D digital imaging was performed of the chest. One image was obtained. An AP view was obtained. COMPARISON: CR,XR XR PORTABLE CHEST AP from 06/14/2024 CR XR CHEST 2V PA LATERAL from 10/30/2024 FINDINGS: MEDIASTINUM: Normal. HEART: Normal. Status post CABG. PULMONARY VASCULATURE: Normal. LUNGS: Clear. PLEURAL SPACE: No pleural effusion or pneumothorax. BONE:Within normal limits for the patient's age. OTHER FINDINGS:Normal. IMPRESSION: 1. No acute pulmonary findings. 2. The preliminary [facility] report was reviewed. DATA REPOSITORY: RADIATION DOSE DELIVERED:
[2025-01-28] MEDS: Albuterol/Ipratropium 3 ML UPD VIAL UPD (02:32)
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
[2025-01-28 02:40] LABS: Abs Immature Grans 0.04 10^3/uL (0.0-0.06); HCT 47.5 % (36.0-46.0); HGB 16.2 g/dL (11.2-15.7); Immature Grans % 0.3 %; MCH 31.5 pg (27.0-33.0); MCHC 34.1 % (32.0-36.0); MCV 92 fL (80-95); MPV 10.6 fL (8.0-11.0); Platelet Count 347 10^3/uL (130-400); RBC 5.15 10^6/uL (3.93-5.22); RDW 12.0 % (11.7-14.6); RDW-SD 40.8 fL; WBC 11.52 10^3/uL (4.4-10.8)
[2025-01-28 02:50] LABS: INR 1.0 (0.9-1.1); PTT Activated 22.7 sec (20.6-30.2); Prothrombin Time 9.9 sec (9.1-11.1)
[2025-01-28 03:03] LABS: ALT 36 U/L (14-59); AST 27 U/L (15-37); Albumin 4.6 g/dL (3.4-5.0); Alkaline Phosphatase 112 U/L (46-116); Anion Gap 15.6 mmol/L (3-11); BUN 20 mg/dL (7-18); Bilirubin, Total 0.5 mg/dL (0.2-1.0); CO2 21.4 mmol/L (21.0-32.0); Calcium 10.2 mg/dL (8.5-10.1); Chloride 102 mmol/L (98-107); Estimated GFR 61.36 (mL/min/1.73m2); Glucose 133 mg/dL (74-106); NT-proBNP 134 pg/mL (<300); Potassium 4.1 mmol/L (3.5-5.1); Sodium 139 mmol/L (136-145); TSH (W/Ref FT4) 10.41 uIU/mL (0.36-3.74); Total Protein 8.6 g/dL (6.4-8.2); Troponin I 8 ng/L (<or=51)
[2025-01-28 03:13] LABS: D-Dimer 745 ng/mlFEU (<500)
--- NOTE | 2025-01-28 03:23 | DI.VRAD_ITS ---
PROCEDURE INFORMATION: Exam: XR Chest Exam date and time: 01/28/2025 2:41 AM Age: 69 years old Clinical indication: Shortness of breath; Prior surgery; Surgery date: 6+ months; Surgery type: Cabg; SOB, HX cad TECHNIQUE: Imaging protocol: Radiologic exam of the chest. Views: 1 view. COMPARISON: CR XR CHEST 2V PA LATERAL 10/30/2024 1:55 PM FINDINGS: Tubes, catheters and devices: Leads overlying chest. Lungs: No consolidation. Pleural spaces: No significant pleural effusion. No pneumothorax. Heart/Mediastinum: No cardiomegaly. Bones/joints: No displaced fracture. Soft tissues: Unremarkable. Other findings: Median sternotomy. IMPRESSION: No definite acute cardiopulmonary disease. Dictated and Authenticated by: Jason Polanco MD. Orderin Unique Hughes MD
[2025-01-28] MEDS: Normal Saline 500 ML IV (03:38)
[2025-01-28 04:17] LABS: Troponin I 7 ng/L (<or=51)
[2025-01-28 05:06] LABS: Glucose Negative (Negative)
[2025-01-28 05:12] LABS: C & S Indicated? No; RBC 0-2 HPF (0-2); WBC Negative HPF (0-5)
[2025-01-28 05:37] LABS: Troponin I 9 ng/L (<or=51)
== END 2025-01-28 06:04 | disposition home or self-care (01) ==
PROVIDERS: Emergency Provider Student in an Organized Health Care Education/Training Program; PCP Physician Assistant Medical
DX: R06.02 Shortness of breath (principal); R61 Generalized hyperhidrosis
CPT/HCPCS: 99285; 99283; 36415; 80053; 93005; 96361; 71045; 81003; 81015; 83880; 84439; 84443; 84484; 85025; 85379; 85610; 85730; 93010; J7620

== ENCOUNTER 2025-02-04 04:38 | Outpatient (CLI) | payer SELFPAY ==
[2025-02-04] MEDS: Inhaler, Assist Device 1 EACH MC (10:48)
[2025-02-04] MEDS: Levalbuterol HFA 15 GM INH 4 PUFF IH (10:48)
--- NOTE | 2025-02-09 06:26 | W.PFT ---
Date of service: 02/04/25 Time of Service: 08:00 Pulmonary Function Test Result Indications: Dyspnea Impression 1. Good patient effort was noted. ATS standards for reproducibility were met. 2. Spirometry showed mild obstructive lung disease with an FEV1 of 89% (1.88 L). FEV1 improved to 99% (2.1 L) post bronchodilator 3. Following the administration of a bronchodilator there was not a significant response 4. TLC was normal. No evidence of restrictive lung disease 5. DLCO was 64%, consistent with a mild-moderate defect in alveolar gas exchange
== END 2025-02-04 04:39 | disposition home or self-care (01) ==
PROVIDERS: PCP Physician Assistant Medical; Visit Provider Internal Medicine Pulmonary Disease
DX: R06.02 Shortness of breath (principal)
CPT/HCPCS: 94060; 94726; 94729

== ENCOUNTER 2025-02-06 03:25 | Outpatient (CLI) | payer SELFPAY ==
[2025-02-06 07:44] LABS: ESR 8 mm/hr (0-30)
[2025-02-06 08:20] LABS: C-Reactive Protein < 0.50 mg/dL (<or=0.5)
[2025-02-06 08:25] LABS: Hemoglobin A1C 5.7 % (<5.7)
[2025-02-06 09:06] LABS: Vitamin D 25 Total 31 ng/mL (30-100)
[2025-02-06 09:48] LABS: Calculated LDL 215 mg/dL (<100); Cholesterol 298 mg/dL (<200); HDL Cholesterol 49 mg/dL (>or=50); Triglyceride 173 mg/dL (<150)
[2025-02-09 12:03] LABS: Ro60 Ab, IgG <7.0 CU (<20.0); SS-A/Ro, IgG <2.3 CU (<20.0); SS-B (La) Ab, IgG <3.3 CU (<20.0)
== END 2025-02-06 03:26 | disposition home or self-care (01) ==
PROVIDERS: PCP Physician Assistant Medical; Visit Provider Internal Medicine Cardiovascular Disease
DX: I25.810 Atherosclerosis of coronary artery bypass graft(s) without angina pectoris (principal)
CPT/HCPCS: 36415; 80061; 82306; 85652; 86200; 83036; 86038; 86140; 86235; 86431

== ENCOUNTER 2025-02-24 11:00 | Outpatient (RCR) | payer SELFPAY ==
[2025-01-27 11:25] VITALS: BP 122/81; PULSE 65
[2025-01-29 12:58] VITALS: BP 144/90; PULSE 76
[2025-02-03 11:13] VITALS: BP 127/86; PULSE 76; O2SAT 91
[2025-02-05 11:00] VITALS: BP 109/71; PULSE 74
[2025-02-10 15:05] VITALS: BP 115/76; PULSE 74
[2025-02-12 15:04] VITALS: BP 120/82; PULSE 75
[2025-02-17 14:30] VITALS: BP 141/83; PULSE 89
[2025-02-19 11:00] VITALS: BP 117/74; PULSE 90
[2025-02-24 12:09] VITALS: BP 119/84; PULSE 89
== END 2025-02-24 23:59 | disposition home or self-care (01) ==
LOC: CR 11:00
PROVIDERS: PCP Physician Assistant Medical; Visit Provider Internal Medicine Cardiovascular Disease
DX: R69 Illness, unspecified (principal)

== ENCOUNTER 2025-03-12 05:22 | Outpatient (CLI) | payer SELFPAY ==
[2025-03-12 10:07] LABS: ESR 8 mm/hr (0-30)
[2025-03-12 10:12] LABS: Hemoglobin A1C 5.8 % (<5.7)
[2025-03-12 10:32] LABS: TSH 1.62 uIU/mL (0.36-3.74)
[2025-03-12 10:33] LABS: C-Reactive Protein < 0.50 mg/dL (<or=0.5)
[2025-03-12 11:13] LABS: Vitamin D 25 Total 29 ng/mL (30-100)
[2025-03-13 10:06] LABS: Ro60 Ab, IgG <7.0 CU (<20.0); SS-A/Ro, IgG <2.3 CU (<20.0); SS-B (La) Ab, IgG <3.3 CU (<20.0)
== END 2025-03-12 05:23 | disposition home or self-care (01) ==
PROVIDERS: PCP Physician Assistant Medical; Visit Provider Physician Assistant Medical
DX: E55.9 Vitamin D deficiency, unspecified (principal); R49.0 Dysphonia; R73.9 Hyperglycemia, unspecified; R79.89 Other specified abnormal findings of blood chemistry
CPT/HCPCS: 36415; 82306; 85652; 86200; 83036; 84439; 84443; 86038; 86140; 86235; 86431

== ENCOUNTER 2025-03-24 11:00 | Outpatient (RCR) | payer SELFPAY ==
[2025-02-25 00:10] VITALS: BP 119/84; PULSE 89
[2025-03-10 11:30] VITALS: BP 141/89; PULSE 102
[2025-03-12 11:23] VITALS: BP 134/88; PULSE 95
[2025-03-17 11:29] VITALS: BP 159/90; PULSE 80
[2025-03-19 11:38] VITALS: BP 129/83; PULSE 79
[2025-03-24 11:27] VITALS: BP 108/73; PULSE 82
== END 2025-03-27 23:59 | disposition home or self-care (01) ==
LOC: CR 11:00
PROVIDERS: PCP Physician Assistant Medical; Visit Provider Internal Medicine Cardiovascular Disease
DX: R69 Illness, unspecified (principal)

== ENCOUNTER 2025-04-21 11:00 | Outpatient (RCR) | payer SELFPAY ==
[2025-03-28 00:21] VITALS: BP 108/73; PULSE 82
[2025-03-31 11:42] VITALS: BP 133/81; PULSE 72
[2025-04-02 11:24] VITALS: BP 117/75; PULSE 80
[2025-04-07 11:12] VITALS: BP 138/79; PULSE 80
[2025-04-14 11:54] VITALS: BP 156/89; PULSE 85
[2025-04-21 11:13] VITALS: BP 139/83; PULSE 77
== END 2025-04-26 23:59 | disposition home or self-care (01) ==
LOC: CR 11:00
PROVIDERS: PCP Physician Assistant Medical; Visit Provider Internal Medicine Cardiovascular Disease
DX: R69 Illness, unspecified (principal)

== ENCOUNTER 2025-05-19 11:00 | Outpatient (RCR) | payer SELFPAY ==
[2025-04-27 00:18] VITALS: BP 139/83; PULSE 77
[2025-04-28 12:53] VITALS: BP 138/91; PULSE 68
[2025-04-30 11:11] VITALS: BP 118/83; PULSE 84
[2025-05-05 11:46] VITALS: BP 136/84; PULSE 90
[2025-05-07 11:14] VITALS: BP 112/76; PULSE 80
[2025-05-12 11:14] VITALS: BP 116/78; PULSE 77
[2025-05-14 11:21] VITALS: BP 110/76; PULSE 83
[2025-05-19 11:17] VITALS: BP 110/74; PULSE 84
== END 2025-05-27 23:59 | disposition home or self-care (01) ==
LOC: CR 11:00
PROVIDERS: PCP Physician Assistant Medical; Visit Provider Internal Medicine Cardiovascular Disease
DX: R69 Illness, unspecified (principal)